=== PATIENT | male | born 1935 | race Caucasian/White ===

== ENCOUNTER 2020-08-10 12:19 | Inpatient (IN) | payer MEDICARE, OTHER ==
[2020-08-10 15:15] LABS: #Eosinphils 0.2 thou/uL (0.0-0.7); #Monocytes 0.6 thou/uL (0.11-0.59); #Neutrophils 5.2 thou/uL (1.40-6.50); %Basophils 0.6 % (0.0-1.0); %Eosinophils 2.6 % (0.0-10.0); %Monocytes 8.9 % (0.0-10.0); %Neutrophils 73.9 % (42.0-75.0); Hemoglobin 14.3 g/dL (14.0-18.0); Mean Corpuscular HGB CONC 33.9 g/dL (32.0-36.0); Mean Corpuscular Hemoglobin 34.6 pg (27.0-31.0); Mean Platelet Volume 8.5 fL (7.4-10.4); Platelet Count 177 thou/uL (130-400); RBC Distribution Width 12.3 % (11.5-14.5); Red Blood Cell (RBC) Count 4.13 mill/uL (4.70-6.10); White Blood Cell (WBC) Count 7.1 thou/uL (4.8-10.8)
--- NOTE | 2020-08-10 15:23 | RAD ---
EXAM: Chest one view: HISTORY: Injury from a fall COMPARISON: 04/16/2020 FINDINGS: Heart size: Within normal limits. Lungs: Clear of acute process. No evidence for confluent lobar pneumonia, significant pleural effusion, acute edema, or pneumothorax , or other significant acute process. IMPRESSION: No significant acute intrathoracic disease.
[2020-08-10 15:36] LABS: ALT (SGPT) 25 U/L (8-55); AST (SGOT) 22 U/L (5-34); Alkaline Phosphatase 95 U/L (40-110); Anion Gap 13 mmol/L (10-20); BUN (Urea Nitrogen) 27 mg/dL (8.4-25.7); Bilirubin, Total 0.6 mg/dL (0.2-1.2); CK (CPK) 96 U/L (30-200); Calc. Creatinine Clearance 0 mL/min (70-130); Calcium 8.8 mg/dL (7.8-10.44); Carbon Dioxide 28 mmol/L (23-31); Chloride 104 mmol/L (98-107); Globulin 2.7 g/dL (2.4-3.5); Glucose 174 mg/dL (83-110); Potassium 4.3 mmol/L (3.5-5.1); Protein, Total 6.7 g/dL (5.8-8.1); Sodium 141 mmol/L (136-145)
[2020-08-10 16:27] LABS: Lipase Less than 4 U/L (8-78)
[2020-08-10 16:48] LABS: Bacteria/HPF None Seen HPF (None Seen); Bilirubin Negative (Negative); Blood, Urine Negative (Negative); Clarity Clear (Clear); Glucose, Urine (Dipstick) Normal (Negative); Ketone, Urine Negative (Negative); Leukocyte Negative Leu/uL (Negative); Nitrite Negative (Negative); Protein, Urine (Dipstick) 30 mg/dL (Neg-Trace); Specific Gravity, Urine 1.031 (1.002-1.036); Squamous Epithelial 0-3 HPF (0-3); WBC/HPF 0-3 HPF (0-3); pH, Urine 6.5 (5.0-9.0)
[2020-08-10 16:58] LABS: RBC/HPF 0-3 HPF (0-3)
--- NOTE | 2020-08-10 16:59 | CT ---
Exam: Head CT without contrast HISTORY: Recent fall. Hit head. COMPARISON: 04/16/2020 FINDINGS: Hemorrhage: No intraparenchymal hemorrhage or extra-axial hematoma. Brain parenchyma: Cortical nickerson-white matter differentiation is preserved. No mass effect or midline shift. Basilar cisterns are patent.Stable chronic small vessel ischemic changes of the white matter. 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 Ventricular system: Ventricles and sulci are patent and symmetric. Calvarium: Intact. Sinuses and mastoid air cells: Adequate aeration. IMPRESSION: No acute intracranial process.
--- NOTE | 2020-08-10 17:41 | PDOC.HHP ---
Hospitalist HPI Generalized weakness History of Present Illness: PCP: Dr. Segovia The patient is an 84-year-old male with a past medical history significant for bradycardia, HTN, HLD, glaucoma and prostate cancer status post prostatectomy that presents to the emergency department for the above complaint. The patient reports feeling generally weak for the past several days. He reports falling today. He says that his legs just "gave out". He denies hitting his head or loss of consciousness. He denies any vomiting. He is not on any blood thinners. He has chronic low back pain, which is unchanged. He denies any saddle anesthesia, urinary incontinence/retention. He has never used IV drugs. He is not a diabetic. He has no recent surgeries to his back. He reports chronic intermittent swelling to his lower extremities. He says that his heart rate normally runs in the 40s to 50s beats per minute. He denies any chest pain, heart palpitations or lightheadedness. He denies any shortness of breath, cough, wheezing. Has no history of COPD/asthma. No history of DVT/PE. His director enterprise data architecture is Dr. Roca in [place]. He does not remember when he had his last echocardiogram. He reports that he is compliant with his medication regimen, however, he does not know any of his medication names. Denies any rece nt changes to his medications. He does not have a pacemaker. He denies any recent fever or illness. He has no other complaints at this time. ED Course: VITAL SIGNS ThuAug 10, 2020 12:22 TEA Ritter Luke BP: 165/72, Pulse: 43, Resp: 18, Temp: 97.7 (Oral), Pain: 0, O2 sat: 98 on (Room Air), Time: 08/10/2020 12:22. VITAL SIGNS ThuAug 10, 2020 15:34 ELIE Martinez Garrett BP: 198/86, MAP: 124, Pulse: 42, Resp: 18, Pain: 0, O2 sat: 98 on (Room Air), Time: 08/10/2020 15:34. EKG sinus bradycardia 41 bpm with first-degree AV block. CT brain negative for any acute process. CXR negative for any acute process. Initial troponin 0.013, BNP 356, no baseline comparison. UA unremarkable TSH 2.59 Hemoglobin 14.3, hematocrit 42.2. Medications: None Allergies/Adverse Reactions: Allergy/AdvReac Type Severity Reaction Status Date / Time iodine Allergy Verified 04/16/20 15:29 metronidazole Allergy Verified 04/16/20 15:29 Sulfa (Sulfonamide Allergy Verified 04/16/20 15:29 Antibiotics) Home Medications: Medication Instructions Recorded Confirmed Type Phenazopyridine HCl [Pyridium] 100 mg PO Q8HR PRN 04/16/20 04/17/20 History Bimatoprost [Lumigan] 1 drop L EYE HS 04/17/20 04/17/20 History Brimonidine Tartrate/Timolol 1 drop L EYE BID 04/17/20 04/17/20 History [Combigan 0.2%-0.5% Eye Drops] Clotrimazole/Betamethasone Cre 1 applic .ROUTE BID 04/17/20 04/17/20 History [Lotrisone Cream] Enalapril Maleate 10 mg PO BID 04/17/20 04/17/20 History Flecainide [Tambocor] 100 mg PO BID 04/17/20 04/17/20 History Fluorometholone [Flarex 0.1% Ophth 1 drop R EYE DAILY 04/17/20 04/17/20 History Soln] Furosemide 20 mg PO DAILY 04/17/20 04/17/20 History Gabapentin 300 mg PO BID 04/17/20 04/17/20 History Potassium Chloride [Klor-Con 10] 10 meq PO DAILY 04/17/20 04/17/20 History Simvastatin 40 mg PO HS 04/17/20 04/17/20 History Past History: PMH: Bradycardia, HTN, HLD, glaucoma, prostate cancer PSX: Prostatectomy approximately 8 years ago, hernia, spinal surgery (cervical spine) Social history: Recently ambulating with a cane. Denies any history of smoking, illicit drug use or alcohol intake. He is retired. He is independent. Family history: Noncontributory for this case. Hospitalist HPI ROS All other systems reviewed; all pertinent +/- noted in HPI/Subj Hospitalist Exam General Appearance: NAD, awake alert. negative: ill appearing Eye: anicteric sclera ENT: normocephalic atraumatic, moist mucosa Neck: supple, no JVD, no carotid bruit Heart: no murmur, no gallops, no rubs, normal peripheral pulses Heart - other findings: Sinus bradycardia Respiratory: CTAB, no wheezes, no rales, no ronchi, normal chest expansion, no tachypnea Gastrointestinal: soft, non-tender, non-distended, normal bowel sounds, no guarding, no rigidity Extremities: no cyanosis, 2+ LE edema Skin: no rashes Neurological: no focal deficits Musculoskeletal: no muscle wasting Psychiatric: normal affect, A&O x 3 Hospitalist Results Result Diagrams: 08/10/20 15:06 08/10/20 15:06 Lab results: Laboratory Last Values WBC 7.1 thou/uL (4.8-10.8) 08/10/20 15:06 RBC 4.13 mill/uL (4.70-6.10) L 08/10/20 15:06 Hgb 14.3 g/dL (14.0-18.0) 08/10/20 15:06 Hct 42.2 % (42.0-52.0) 08/10/20 15:06 MCV 102.0 fL (78.0-98.0) H 08/10/20 15:06 MCH 34.6 pg (27.0-31.0) H 08/10/20 15:06 MCHC 33.9 g/dL (32.0-36.0) 08/10/20 15:06 RDW 12.3 % (11.5-14.5) 08/10/20 15:06 Plt Count 177 thou/uL (130-400) 08/10/20 15:06 MPV 8.5 fL (7.4-10.4) 08/10/20 15:06 Neutrophils % 73.9 % (42.0-75.0) 08/10/20 15:06 Lymphocytes % 14.0 % (21.0-51.0) L 08/10/20 15:06 Monocytes % 8.9 % (0.0-10.0) 08/10/20 15:06 Eosinophils % 2.6 % (0.0-10.0) 08/10/20 15:06 Basophils % 0.6 % (0.0-1.0) 08/10/20 15:06 Neutrophils # 5.2 thou/uL (1.40-6.50) 08/10/20 15:06 Lymphocytes # 1.0 thou/uL (1.20-3.40) L 08/10/20 15:06 Monocytes # 0.6 thou/uL (0.11-0.59) H 08/10/20 15:06 Eosinophils # 0.2 thou/uL (0.0-0.7) 08/10/20 15:06 Basophils # 0.0 thou/uL (0.0-0.2) 08/10/20 15:06 Sodium 141 mmol/L (136-145) 08/10/20 15:06 Potassium 4.3 mmol/L (3.5-5.1) 08/10/20 15:06 Chloride 104 mmol/L (98-107) 08/10/20 15:06 Carbon Dioxide 28 mmol/L (23-31) 08/10/20 15:06 Anion Gap 13 mmol/L (10-20) 08/10/20 15:06 BUN 27 mg/dL (8.4-25.7) H 08/10/20 15:06 Creatinine 1.22 mg/dL (0.7-1.3) 08/10/20 15:06 Estimated GFR (MDRD) 56 08/10/20 15:06 Glucose 174 mg/dL (83-110) H 08/10/20 15:06 Calcium 8.8 mg/dL (7.8-10.44) 08/10/20 15:06 Total Bilirubin 0.6 mg/dL (0.2-1.2) 08/10/20 15:06 AST 22 U/L (5-34) 08/10/20 15:06 ALT 25 U/L (8-55) 08/10/20 15:06 Alkaline Phosphatase 95 U/L (40-110) 08/10/20 15:06 Creatine Kinase 96 U/L (30-200) 08/10/20 15:06 Troponin I 0.013 ng/mL (< 0.028) 08/10/20 15:06 B-Natriuretic Peptide 356.6 pg/mL (0-100) H 08/10/20 15:06 Serum Total Protein 6.7 g/dL (5.8-8.1) 08/10/20 15:06 Albumin 4.0 g/dL (3.4-4.8) 08/10/20 15:06 Globulin 2.7 g/dL (2.4-3.5) 08/10/20 15:06 Albumin/Globulin Ratio 1.5 g/dL (1.2-2.2) 08/10/20 15:06 Lipase Less than 4 U/L (8-78) L 08/10/20 15:06 TSH 3rd Generation 2.5918 uIU/mL (0.35-4.94) 08/10/20 15:06 Urine Color Yellow (Yellow) 08/10/20 16:20 Urine Clarity Clear (Clear) 08/10/20 16:20 Urine pH 6.5 (5.0-9.0) 08/10/20 16:20 Ur Specific [place] 1.031 (1.002-1.036) 08/10/20 16:20 Urine Protein 30 mg/dL (Neg-Trace) A 08/10/20 16:20 Urine Glucose (UA) Normal mg/dL (Negative) 08/10/20 16:20 Urine Ketones Negative mg/dL (Negative) 08/10/20 16:20 Urine Blood Negative (Negative) 08/10/20 16:20 Urine Nitrite Negative (Negative) 08/10/20 16:20 Urine Bilirubin Negative (Negative) 08/10/20 16:20 Urine Urobilinogen 2.0 mg/dL (Less than 2) A 08/10/20 16:20 Ur Leukocyte Esterase Negative Ulices/uL (Negative) 08/10/20 16:20 Urine RBC 0-3 HPF (0-3) 08/10/20 16:20 Urine WBC 0-3 HPF (0-3) 08/10/20 16:20 Ur Squamous Epith Cells 0-3 HPF (0-3) 08/10/20 16:20 Urine Bacteria None Seen HPF (None Seen) 08/10/20 16:20 Hyaline Casts 0-3 LPF (0-3) 08/10/20 16:20 EKG Status: report reviewed by me Additional Comments: 12 lead EKG interpreted by Emergency Department Physician at time of study, Heart rate 41, sinus bradycardia with first-degree degree AV block, nonspecific intraventricular block, QTC 432. CT scan - head Status: report reviewed by me Additional Comments: IMPRESSION: No acute intracranial process. Chest x-ray Status: report reviewed by me Additional Comments: IMPRESSION: No significant acute intrathoracic disease. Hospitalist H&P A/P (1) Sinus bradycardia, persistent Code(s): R00.1 - BRADYCARDIA, UNSPECIFIED Status: Acute (2) Falls Code(s): W19.XXXA - UNSPECIFIED FALL, INITIAL ENCOUNTER Status: Acute Qualifiers: Encounter type: initial encounter Qualified Code(s): W19.XXXA - Unspecified fall, initial encounter (3) History of bradycardia Code(s): Z87.898 - PERSONAL HISTORY OF OTHER SPECIFIED CONDITIONS Status: Chronic (4) HTN (hypertension) Code(s): I10 - ESSENTIAL (PRIMARY) HYPERTENSION Status: Chronic (5) Glaucoma Code(s): H40.9 - UNSPECIFIED GLAUCOMA Status: Chronic (6) Prostate cancer Code(s): C61 - MALIGNANT NEOPLASM OF PROSTATE Status: Chronic Plan: a patient with a history of bradycardia, HTN and HLD presents for generalized weakness, frequent falls and persistent bradycardia. EKG sinus bradycardia 41 bpm with first-degree AV block. Initial troponin negative. BNP mildly elevated 356. #Sinus bradycardia, persistent ER MD consulted cardiology, Dr. Dillard, who agreed to see patient. N.p.o. after midnight. Echocardiogram. Unable to update home medication list. Did show flecainide. While review med list once confirmed by spouse. #Falls Unclear etiology at this time. CT negative for any acute process. Could be related to problem #1. Will check Carotid US. Fall precautions. #History of bradycardia Heart rate 40s to 50s per patient. Sees Dr. Omi Roca in [place]. Order echocardiogram. Consult cardiology. #HTN Presented hypertensive. Gave hydralazine x1 dose. A: Bilateral lower extremity swelling 2+ edema BNP 356, no baseline for comparison. CXR no evidence of pulmonary congestion. Takes Lasix at home, unknown dose. We will give Lasix 40 IVP x1 dose now. #Glaucoma Restart home medications when reconciled by nursing. #Prostate cancer Status post prostatectomy approximately 8 years ago. NO DVT prophylaxis. Pepcid for GI prophylaxis. CODE STATUS full code. Discussed the case with Dr. Cuenca, attending physician who agrees with plan of care.
[2020-08-10] MEDS ORDERED: hydrALAZINE 20 MG/ML VIAL ONE (18:15)
[2020-08-10 19:02] LABS: Troponin I Less than 0.010 ng/mL (< 0.028)
[2020-08-10] MEDS ORDERED: Acetaminophen 325 MG TAB PO PRN (19:04)
[2020-08-10] MEDS ORDERED: Ondansetron PF 4 MG/2 ML Vial IVP PRN (19:04)
[2020-08-10] MEDS ORDERED: Ondansetron ODT 4 MG TAB PO PRN (19:04)
[2020-08-10 21:49] LABS: Troponin I 0.016 ng/mL (< 0.028)
[2020-08-11 04:52] LABS: #Basophils 0.1 thou/uL (0.0-0.2); #Eosinphils 0.3 thou/uL (0.0-0.7); #Lymphocytes 1.1 thou/uL (1.20-3.40); #Monocytes 0.8 thou/uL (0.11-0.59); #Neutrophils 5.4 thou/uL (1.40-6.50); %Basophils 1.2 % (0.0-1.0); %Eosinophils 3.3 % (0.0-10.0); %Lymphocytes 14.5 % (21.0-51.0); %Monocytes 9.9 % (0.0-10.0); %Neutrophils 71.1 % (42.0-75.0); Hemoglobin 13.6 g/dL (14.0-18.0); Mean Corpuscular HGB CONC 33.3 g/dL (32.0-36.0); Mean Corpuscular Hemoglobin 33.2 pg (27.0-31.0); Mean Corpuscular Volume 99.7 fL (78.0-98.0); Mean Platelet Volume 8.5 fL (7.4-10.4); Platelet Count 185 thou/uL (130-400); RBC Distribution Width 12.3 % (11.5-14.5); White Blood Cell (WBC) Count 7.6 thou/uL (4.8-10.8)
[2020-08-11 05:14] LABS: Anion Gap 9 mmol/L (10-20); BUN (Urea Nitrogen) 19 mg/dL (8.4-25.7); Calc. Creatinine Clearance 74 mL/min (70-130); Calcium 8.8 mg/dL (7.8-10.44); Carbon Dioxide 28 mmol/L (23-31); Cardiac Risk 2.4 (Less than 4.5); Chloride 104 mmol/L (98-107); Cholesterol 117 mg/dl (< 200 Desired); Glucose 137 mg/dL (83-110); HDL Cholesterol 49 mg/dL (>60 Neg Risk); LDL Cholesterol, Calculated 55 mg/dL; Potassium 3.7 mmol/L (3.5-5.1); Sodium 137 mmol/L (136-145); Triglycerides 65 mg/dL (Less than 150)
[2020-08-11 05:28] LABS: SARS-CoV-2 PCR by NAA Not Detected (NotDetected)
--- NOTE | 2020-08-11 08:28 | ULT ---
EXAM: Carotid Doppler PROVIDED CLINICAL HISTORY: Falls COMPARISON: None FINDINGS: Grayscale and color Doppler sonography with spectral analysis was performed of the extracranial carot id system bilaterally. Atherosclerotic plaque is seen in each carotid bulb. There is no evidence for a hemodynamically significant internal carotid artery stenosis by peak systolic velocity or ratio criteria. Antegrade flow is seen in the vertebral arteries. IMPRESSION: No sonographic evidence for a hemodynamically significant internal carotid artery stenosis.
[2020-08-11] MEDS: Potassium Chloride 10 MEQ TAB PO SCH (08:46)
[2020-08-11] MEDS: Lisinopril 20 MG TAB PO SCH ×2 (08:46→23:05)
[2020-08-11] MEDS: Aspirin Chewable 81 MG TAB PO SCH (08:47)
[2020-08-11] MEDS: Famotidine 20 MG TAB PO SCH (08:47)
[2020-08-11] MEDS ORDERED: Enoxaparin Sodium 40 MG/0.4 ML SYRINGE SC SCH (09:00)
[2020-08-11] MEDS ORDERED: Furosemide 40 MG/4 ML VIAL SLOW IVP SCH (09:00)
[2020-08-11] MEDS: Fluorometholone 0.1% Ophth Soln 5 ml Bottle R EYE SCH ×2 (10:34→23:09)
[2020-08-11] MEDS: hydrALAZINE 20 MG/ML VIAL SLOW IVP PRN ×2 (10:35→15:11)
[2020-08-11] MEDS: Furosemide 20 MG TAB PO SCH (10:35)
[2020-08-11 12:14] VITALS: BMI 25.4
[2020-08-11] MEDS: Brimonidine Tartrate 0.2% Ophth Soln 5 ml Bottle EA EYE SCH ×2 (13:37→23:12)
[2020-08-11] MEDS: Timolol 0.5% Ophth Soln 5 ml Bottle EA EYE SCH ×2 (13:37→23:13)
--- NOTE | 2020-08-11 16:23 | PDOC.BPN ---
- Brief Progress Note progress note dictated
[2020-08-11] MEDS ORDERED: hydrALAZINE 25 MG TAB PO SCH (16:30)
--- NOTE | 2020-08-11 16:44 | PRG ---
DATE OF SERVICE: 08/11/2020 SUBJECTIVE: The patient is sitting up in bed, denies chest pain, shortness of breath, or dizziness. The patient stated that recently he has been feeling lightheaded and otherwise no new complaints. REVIEW OF SYSTEMS: Review of 14 systems is negative except what is mentioned in history of present illness. PHYSICAL EXAMINATION: GENERAL: The patient is awake, does not appear to be in acute distress. VITAL SIGNS: Blood pressure is 201/90, pulse is 47, respiratory rate is 18, oxygen saturation 97% on room air, and temperature 97.7. HEENT: Normocephalic, atraumatic. NECK: Supple. CHEST: Fair bilateral air entry. HEART: S1 and S2. Regular, bradycardic. ABDOMEN: Soft, nontender. Bowel sounds present. NEUROLOGIC: Awake, alert, oriented. Moving extremities. PSYCH: Normal mood. LABORATORY DATA: Sodium 137, potassium 3.7, BUN is 19, creatinine 0.8, glucose is 137. WBC count is 7.6, hemoglobin 13.6, and platelets 12.3. Carotid Doppler unremarkable. 2D echo pending. CT of the brain, no acute finding. Chest x-ray, no acute finding. ASSESSMENT: 1. Sinus bradycardia, persistent. 2. Recurrent falls. 3. Hypertension. 4. Glaucoma. 5. Prostate cancer. PLAN: 1. Continue with telemetry monitoring. 2. We will follow 2D echo results. 3. Cardiology is consulted for evaluation and further recommendations. 4. The patient's blood pressure is still not well controlled, we will add p.o. hydralazine. 5. GI and DVT prophylaxis as appropriate. Job ID: [id number]
--- NOTE | 2020-08-11 18:31 | CON ---
DATE OF CONSULTATION: 08/11/2020 REASON FOR CONSULTATION: Bradycardia. PRIMARY RN FIRST ASSISTANT: Dr. Omi Hernandez. HISTORY OF PRESENT ILLNESS: Mr. Rosas is a very pleasant 84-year-old white gentleman, who comes to the hospital for weakness. He came in as he has been noticing weakness in the last 2 or 3 days that just kept getting worse and worse. He denies passing out. No syncope or presyncope. He just felt that he was stunned up and he was so weak, his legs would give out. He came in and his heart rate was at 42, so Cardiology is being consulted to evaluate for possible symptomatic bradycardia. At this time, Mr. Rosas tells me that his heart rate is always in the 40s. He has a history of atrial fibrillation and has been on flecainide for some time now. He used to be on Multaq, but this became too expensive, so he was switched to flecainide. He is taking 150 mg tab twice a day. He otherwise has not been found to have any other reason for his weakness. On my evaluation, he denies any chest pain, tightness, pressure. No shortness of breath. He remains somewhat tired and just feeling like he does not want to do much. PAST MEDICAL HISTORY: 1. Paroxysmal atrial fibrillation. 2. Hypertension. 3. Hyperlipidemia. 4. Prostate cancer. 5. Glaucoma. PAST SURGICAL HISTORY: 1. Prostatectomy. 2. Spinal surgery and cervical spine. 3. Hernia surgery. SOCIAL HISTORY: No alcohol, tobacco, or drugs. FAMILY HISTORY: Noncontributory. MEDICATIONS: 1. Pyridium p.r.n. 2. Lumigan eye drops. 3. Combigan eye drops. 4. Lotrisone cream. 5. Enalapril 10 mg b.i.d. 6. Flecainide 150 mg b.i.d. 7. Aspirin 81 a day. 8. Simvastatin 40 mg at bedtime. 9. Lasix 20 mg a day. 10. Potassium chloride 10 mEq a day. 11. Gabapentin 300 mg at bedtime. ALLERGIES: 1. ADHESIVE TAPE. 2. IODINE. 3. METRONIDAZOLE. 4. SULFA DRUGS. THEY ALL GAVE HIM A RASH. REVIEW OF SYSTEMS: A 12-point review of systems was done and was found to be negative other than stated in the history of present illness. PHYSICAL EXAMINATION: VITAL SIGNS: Temperature 98.3, pulse anywhere from 41 on arrival up to 56, respiratory rate 18, sat 97% on room air, blood pressure 126/59. GENERAL: Awake, alert, and oriented x3, in no distress. HEENT: Normocephalic and atraumatic. NECK: Supple. LUNGS: Clear. CARDIOVASCULAR: S1 and S2. No S3 or S4. Bradycardic in the mid 40s. ABDOMEN: Soft. Positive bowel sounds. EXTREMITIES: No edema. SKIN: Warm and dry. LABORATORY DATA: Laboratory work was reviewed. White count of 7, hemoglobin of 14, hematocrit 42, and platelet count of 177. Chemistries were unremarkable. Normal BUN and creatinine. GFR of 83. Troponin was negative x3. BNP was mildly elevated at 356. Lipase was undetectable. LDL 55, triglycerides of 65, HDL of 49. TSH was normal. UA was unremarkable. COVID PCR was negative. Echocardiogram was reviewed, showed an EF of 55% to 60% with diastolic dysfunction and RVSP elevated at 50 mmHg. Carotid Doppler showed no evidence of internal carotid artery stenosis. ASSESSMENT/PLAN: 1. Weakness. 2. Bradycardia, could be symptomatic. 3. 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 4. Acute on chronic diastolic heart failure. PLAN: 1. Would give just one more day of IV Lasix. He already got Lasix today IV. We will give it tomorrow IV as well just one time. 2. He will stop the flecainide at this time. 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 We will plan on consulting Electrophysiology on Thursday as he will probably need a pacemaker. We will consult Dr. Ricks. Thank you for letting us to participate in the care of your patient. We will follow. Job ID: [id number]
[2020-08-11] MEDS: Simvastatin 40 MG TAB PO SCH (23:04)
[2020-08-11] MEDS: hydrALAZINE 25 MG TAB PO SCH (23:05)
[2020-08-11] MEDS: Latanoprost 0.005% Ophth Soln 2.5 ml Bottle EA EYE SCH (23:06)
[2020-08-11] MEDS: Gabapentin 300 MG CAP PO SCH (23:07)
[2020-08-12] MEDS: Famotidine 20 MG TAB PO SCH (10:05)
[2020-08-12] MEDS: Furosemide 20 MG TAB PO SCH (10:05)
[2020-08-12] MEDS: Potassium Chloride 10 MEQ TAB PO SCH (10:05)
[2020-08-12] MEDS: Aspirin Chewable 81 MG TAB PO SCH (10:06)
[2020-08-12] MEDS: Lisinopril 20 MG TAB PO SCH ×2 (10:06→20:51)
[2020-08-12] MEDS: hydrALAZINE 25 MG TAB PO SCH ×2 (10:06→20:51)
[2020-08-12] MEDS: Brimonidine Tartrate 0.2% Ophth Soln 5 ml Bottle EA EYE SCH ×2 (10:15→20:47)
[2020-08-12] MEDS: Timolol 0.5% Ophth Soln 5 ml Bottle EA EYE SCH ×2 (10:22→20:51)
[2020-08-12] MEDS: Fluorometholone 0.1% Ophth Soln 5 ml Bottle R EYE SCH ×2 (10:22→20:50)
--- NOTE | 2020-08-12 14:33 | PDOC.BPN ---
- Brief Progress Note [id number]
[2020-08-12] MEDS ORDERED: Enoxaparin Sodium 40 MG/0.4 ML SYRINGE SC SCH (15:00)
[2020-08-12] MEDS: hydrALAZINE 20 MG/ML VIAL SLOW IVP PRN (16:35)
--- NOTE | 2020-08-12 16:52 | PDOC.CPN ---
- Subjective Date: 08/12/20 Time: 16:51 Interval history: He is feeling better today. His HR is better in the mid 50's. - Review of Systems General: denies: fever/chills, weight/appetite/sleep changes, night sweats, fatigue Respiratory: denies: cough, congestion, shortness of breath, exercise intolerance Cardiovascular: denies: chest pain, palpitation, edema, paroxysmal nocturnal dyspnea, orthopnea Gastrointestinal: denies: nausea, vomiting, diarrhea, constipation, abd pain, GI bleeding Musculoskeletal: denies: pain, tenderness, stiffness, swelling, arthritis/arthralgias Neurological: denies: numbness, syncope, seizure, weakness - Objective Allergies/Adverse Reactions: Allergies Allergy/AdvReac Type Severity Reaction Status Date / Time adhesive tape Allergy Rash Verified 08/10/20 22:27 iodine Allergy Rash Verified 08/10/20 22:27 metronidazole Allergy Rash Verified 08/10/20 22:27 Sulfa (Sulfonamide Allergy Rash Verified 08/10/20 22:27 Antibiotics) Visit Medications: Current Medications Acetaminophen (Acetaminophen 325 Mg Tab) 650 mg PO Q4H PRN PRN Reason: Headache/Fever/Mild Pain (1-3) Aspirin (Aspirin Chewable 81 Mg Tab) 81 mg PO DAILY [facility] Last Admin: 08/12/20 10:06 Dose: 81 mg Documented by: Brimonidine Tartrate (Brimonidine Tartrate 0.2% Ophth Soln 5 Ml Bottle) 1 drop EA EYE BID [facility] Last Admin: 08/12/20 10:15 Dose: 1 drop Documented by: Enoxaparin Sodium (Enoxaparin Sodium 40 Mg/0.4 Ml Syringe) 40 mg SC DAILY [facility] Enoxaparin Sodium (Enoxaparin Sodium 40 Mg/0.4 Ml Syringe) 40 mg SC NOW [facility] Stop: 08/12/20 17:00 Last Admin: 08/12/20 15:50 Dose: 40 mg Documented by: Famotidine (Famotidine 20 Mg Tab) 20 mg PO DAILY [facility] Last Admin: 08/12/20 10:05 Dose: 20 mg Documented by: Fluorometholone (Fluorometholone 0.1% Ophth Soln 5 Ml Bottle) 1 drop R EYE BID [facility] Last Admin: 08/12/20 10:22 Dose: Not Given Documented by: Furosemide (Furosemide 20 Mg Tab) 20 mg PO DAILY [facility] Last Admin: 08/12/20 10:05 Dose: 20 mg Documented by: Gabapentin (Gabapentin 300 Mg Cap) 300 mg PO [facility] Last Admin: 08/11/20 23:07 Dose: 300 mg Documented by: Hydralazine HCl (Hydralazine 20 Mg/Ml Vial) 10 mg SLOW IVP Q4H PRN PRN Reason: SBP > 180 or DBP > 105 Last Admin: 08/12/20 16:35 Dose: 10 mg Documented by: Hydralazine HCl (Hydralazine 25 Mg Tab) 25 mg PO BID [facility] Last Admin: 08/12/20 10:06 Dose: 25 mg Documented by: Latanoprost (Latanoprost 0.005% Ophth Soln 2.5 Ml Bottle) 1 drop EA EYE [facility] Last Admin: 08/11/20 23:06 Dose: 1 drop Documented by: Lisinopril (Lisinopril 20 Mg Tab) 20 mg PO BID [facility] Last Admin: 08/12/20 10:06 Dose: 20 mg Documented by: Ondansetron HCl (Ondansetron Odt 4 Mg Tab) 4 mg PO Q6H PRN PRN Reason: Nausea/Vomiting Ondansetron HCl (Ondansetron Pf 4 Mg/2 Ml Vial) 4 mg IVP Q6H PRN PRN Reason: Nausea/Vomiting Potassium Chloride (Potassium Chloride 10 Meq Tab) 10 meq PO DAILY [facility] Last Admin: 08/12/20 10:05 Dose: 10 meq Documented by: Simvastatin (Simvastatin 40 Mg Tab) 40 mg PO [facility] Last Admin: 08/11/20 23:04 Dose: 40 mg Documented by: Sodium Chloride (Flush - Normal Saline 10 Ml Syringe) 10 ml IVF PRN PRN PRN Reason: Saline Flush Last Admin: 08/11/20 23:06 Dose: 10 ml Documented by: Timolol Maleate (Timolol 0.5% Ophth Soln 5 Ml Bottle) 1 drop EA EYE BID [facility] Last Admin: 08/12/20 10:22 Dose: Not Given Documented by: Vital Signs & Weight: Vital Signs Temp Pulse Resp BP BP BP BP 08/12/20 15:53 98.7 F 59 L 14 196/97 H 08/12/20 11:15 97.8 F 62 19 162/72 H 08/12/20 09:00 98.4 F 59 L 12 196/102 H 207/102 H 208/89 H Pulse Ox 08/12/20 15:53 95 08/12/20 11:15 95 08/12/20 09:00 96 Weight 176 lb - Physical Exam General: alert & oriented x3 HEENT: mucus membranes moist Neck: supple neck Cardiac: regular rate and rhythm Lungs: normal breath sounds Neuro: grossly intact Abdomen: active bowel sounds Extremities: no edema Skin: clear Musculoskeletal: no pain - Labs Result Diagrams: 08/11/20 04:36 08/11/20 04:36 Troponin/CKMB Troponin I 0.016 ng/mL (< 0.028) 08/10/20 21:18 - Telemetry Sinus rhythms and dysrhythmias: sinus bradycardia (< 50 bpm) - Assessment/Plan Assessment/Plan: 1. Fatigue 2. Sinus marianela 3. Paroxysmal Afib PLAN: - EP consult tomorrow with Dr Ricks to evaluate for possible Tachy marianela and need for PPM - Continue to hold flecainide.
--- NOTE | 2020-08-12 18:37 | PDOC.EP ---
- Subjective Date: 08/12/20 Time: 18:34 - Objective Allergies/Adverse Reactions: Allergies Allergy/AdvReac Type Severity Reaction Status Date / Time adhesive tape Allergy Rash Verified 08/10/20 22:27 iodine Allergy Rash Verified 08/10/20 22:27 metronidazole Allergy Rash Verified 08/10/20 22:27 Sulfa (Sulfonamide Allergy Rash Verified 08/10/20 22:27 Antibiotics) Current Medications Acetaminophen (Acetaminophen 325 Mg Tab) 650 mg PO Q4H PRN PRN Reason: Headache/Fever/Mild Pain (1-3) Aspirin (Aspirin Chewable 81 Mg Tab) 81 mg PO DAILY [facility] Last Admin: 08/12/20 10:06 Dose: 81 mg Documented by: Brimonidine Tartrate (Brimonidine Tartrate 0.2% Ophth Soln 5 Ml Bottle) 1 drop EA EYE BID [facility] Last Admin: 08/12/20 10:15 Dose: 1 drop Documented by: Enoxaparin Sodium (Enoxaparin Sodium 40 Mg/0.4 Ml Syringe) 40 mg SC DAILY [facility] Famotidine (Famotidine 20 Mg Tab) 20 mg PO DAILY [facility] Last Admin: 08/12/20 10:05 Dose: 20 mg Documented by: Fluorometholone (Fluorometholone 0.1% Ophth Soln 5 Ml Bottle) 1 drop R EYE BID [facility] Last Admin: 08/12/20 10:22 Dose: Not Given Documented by: Furosemide (Furosemide 20 Mg Tab) 20 mg PO DAILY [facility] Last Admin: 08/12/20 10:05 Dose: 20 mg Documented by: Gabapentin (Gabapentin 300 Mg Cap) 300 mg PO [facility] Last Admin: 08/11/20 23:07 Dose: 300 mg Documented by: Hydralazine HCl (Hydralazine 20 Mg/Ml Vial) 10 mg SLOW IVP Q4H PRN PRN Reason: SBP > 180 or DBP > 105 Last Admin: 08/12/20 16:35 Dose: 10 mg Documented by: Hydralazine HCl (Hydralazine 25 Mg Tab) 25 mg PO BID [facility] Last Admin: 08/12/20 10:06 Dose: 25 mg Documented by: Latanoprost (Latanoprost 0.005% Ophth Soln 2.5 Ml Bottle) 1 drop EA EYE [facility] Last Admin: 08/11/20 23:06 Dose: 1 drop Documented by: Lisinopril (Lisinopril 20 Mg Tab) 20 mg PO BID [facility] Last Admin: 08/12/20 10:06 Dose: 20 mg Documented by: Ondansetron HCl (Ondansetron Odt 4 Mg Tab) 4 mg PO Q6H PRN PRN Reason: Nausea/Vomiting Ondansetron HCl (Ondansetron Pf 4 Mg/2 Ml Vial) 4 mg IVP Q6H PRN PRN Reason: Nausea/Vomiting Potassium Chloride (Potassium Chloride 10 Meq Tab) 10 meq PO DAILY [facility] Last Admin: 08/12/20 10:05 Dose: 10 meq Documented by: Simvastatin (Simvastatin 40 Mg Tab) 40 mg PO HS [facility] Last Admin: 08/11/20 23:04 Dose: 40 mg Documented by: Sodium Chloride (Flush - Normal Saline 10 Ml Syringe) 10 ml IVF PRN PRN PRN Reason: Saline Flush Last Admin: 08/11/20 23:06 Dose: 10 ml Documented by: Timolol Maleate (Timolol 0.5% Ophth Soln 5 Ml Bottle) 1 drop EA EYE BID [facility] Last Admin: 08/12/20 10:22 Dose: Not Given Documented by: Vital Signs & Weight: Vital Signs Temp Pulse Resp BP BP BP BP 08/12/20 15:53 98.7 F 59 L 14 196/97 H 08/12/20 11:15 97.8 F 62 19 162/72 H 08/12/20 09:00 98.4 F 59 L 12 196/102 H 207/102 H 208/89 H Pulse Ox 08/12/20 15:53 95 08/12/20 11:15 95 08/12/20 09:00 96 Weight 176 lb I/O: I/O 08/11/20 08/12/20 08/13/20 06:59 06:59 06:59 Intake Total 240 720 Output Total 775 1900 Balance -535 -1180 - Labs Result Diagrams: 08/11/20 04:36 08/11/20 04:36 - Assessment/Plan Assessment/Plan: Paroxysmal atrial fibrillation Sick sinus syndrome with symptomatic bradycardia. Recommend dual chamber pacemaker. He requests Dr. Omi Roca perform as outpatient. Okay from EP standpoint to discharge tomorrow if no worsening bradycardia overnight. Plan outpatient pacemaker this week. I will discuss with Dr. Roca Full consult to follow
[2020-08-12] MEDS: Latanoprost 0.005% Ophth Soln 2.5 ml Bottle EA EYE SCH (20:51)
[2020-08-12] MEDS: Gabapentin 300 MG CAP PO SCH (20:51)
[2020-08-12] MEDS: Simvastatin 40 MG TAB PO SCH (22:13)
--- NOTE | 2020-08-12 23:14 | CON ---
DATE OF CONSULTATION: 08/12/2020 PCP: Jeff Segovia MD. REFERRING FIGURE SKATER: Christian Dillard MD. PRIMARY FIGURE SKATER: Omi Roca MD. REASON FOR CONSULTATION: Sick sinus syndrome and symptomatic bradycardia. HISTORY OF PRESENT ILLNESS: Mr. Rosas is a pleasant 84-year-old white male, who was admitted August 10 with weakness and difficulty walking. He feels he has a general feeling of weakness. He has had no syncope or presyncope. Heart rate was 41 on admission. He was on flecainide 100 mg b.i.d. He is not on calcium channel laurence or beta laurence. He was changed from Multaq to flecainide due to cost. Since admission, he has remained bradycardic. He has moderate daily fatigue without exacerbating or alleviating factors. He has no chest discomfort or dyspnea. PAST MEDICAL HISTORY: 1. Paroxysmal atrial fibrillation. 2. Hypertension. 3. Dyslipidemia. 4. Prostate cancer. 5. Glaucoma. PAST SURGICAL HISTORY: 1. Prostatectomy. 2. Spinal surgery. 3. Hernia surgery. ALLERGIES: ADHESIVE TAPE, IODINE, METRONIDAZOLE, SULFA, ALL GAVE HIM A RASH. OUTPATIENT MEDICATIONS: 1. Enalapril 10 mg b.i.d. 2. Flecainide 150 mg b.i.d. 3. Aspirin 81 mg daily. 4. Simvastatin 40 mg at bedtime. 5. Lasix 20 mg daily. 6. Potassium chloride 10 mEq daily. 7. Gabapentin 300 mg at bedtime. FAMILY HISTORY: Noncontributory. SOCIAL HISTORY: . Lives in [place]. No alcohol or tobacco. REVIEW OF SYSTEMS: 12-point review of systems negative. PHYSICAL EXAMINATION: GENERAL: Alert and oriented x4. No apparent distress. Afebrile. VITAL SIGNS: Pulse 41, respiratory rate 12, oxygen saturation 97% on room air, blood pressure 126/59. LUNGS: Clear to auscultation bilaterally. EXTREMITIES: No cyanosis, clubbing, or edema. SKIN: Warm and dry with no lesions. LABORATORY DATA: WBC 7, hemoglobin 14, platelets 177. Normal BUN and creatinine. Troponin normal. BNP mildly elevated. COVID-19 negative. Echocardiogram, EF 55% to 60% with diastolic dysfunction, elevated RVSP of 50, moderately dilated left atrium, mildly dilated right atrium, aortic sclerosis. IMPRESSION: 1. Sick sinus syndrome with symptomatic bradycardia, despite not being on medication and withholding flecainide. He has symptomatic bradycardia at 41 beats per minute while awake. There were no reversible causes. 2. Paroxysmal atrial fibrillation. 3. Tachycardia and bradycardia syndrome. RECOMMENDATIONS: I recommend dual-chamber pacemaker implantation. He strongly wishes to have this procedure done as an outpatient by Dr. Omi Roca. I have discussed the case with Dr. Roca, who will contact him tomorrow. We will plan for pacemaker later this week. The patient understands the risk of leaving the hospital without pacemaker implantation and accepts these. Job ID: [id number]
--- NOTE | 2020-08-13 06:33 | PRG ---
DATE OF SERVICE: 08/12/2020 CURRENT MEDICATIONS: The patient is on, 1. Zofran. 2. Brimonidine eyedrops. 3. Tylenol p.r.n. 4. Gabapentin. 5. Lisinopril. 6. Timolol eyedrops. 7. Fluorometholone eyedrops. 8. Hydralazine p.r.n. 9. Hydralazine scheduled. 10. Pepcid. 11. Simvastatin. 12. Lasix 20 mg p.o. daily. 13. Aspirin. 14. Latanoprost eye drops. 15. Potassium. SUBJECTIVE: The patient is awake, is feeling okay, no new complaints. OBJECTIVE DATA: VITAL SIGNS: Blood pressure is 155/78, temperature 98.6, heart rate is 55, respiratory rate is 16, oxygen saturation 96% on room air. HEAD AND NECK: Normocephalic, atraumatic. Neck is supple. CHEST: Fair bilateral air entry. HEART: S1 and S2, regular. ABDOMEN: Soft, nontender. Bowel sounds present. NEURO: Awake, alert. No focal deficit. PSYCH: Normal mood. EXTREMITIES: No clubbing or cyanosis. ASSESSMENT AND PLAN: 1. Bradycardia, symptomatic? 2. Recurrent falls. 3. Hypertension. 4. Glaucoma. 5. Prostate cancer. PLAN: 1. Continue with telemetry monitoring. 2. Appreciate Cardiology input. May need electrophysiology consult as per Cardiology, ?? the patient may need a pacemaker. 3. Continue with current medications. 4. DVT prophylaxis, Lovenox. Job ID: [id number]
--- NOTE | 2020-08-13 08:48 | PDOC.HOSPP ---
- Subjective Encounter Date: 08/13/20 Encounter Time: 11:30 Subjective: Patient denies any weakness, shortness of breath, or trouble with ambulation. No chest pain. He is eager to get home and then to follow-up with Dr. Roca for his pacemaker. - Objective Vital Signs & Weight: Vital Signs (12 hours) Temp Pulse Resp BP Pulse Ox 08/13/20 04:00 98.3 F 65 20 164/72 H 90 L 08/13/20 00:00 54 L 102/49 L Weight Weight 179 lb 4 oz I&O: 08/12/20 08/13/20 08/14/20 06:59 06:59 06:59 Intake Total 720 1200 Output Total 1900 1175 Balance -1180 25 Result Diagrams: 08/11/20 04:36 08/11/20 04:36 Hospitalist ROS - Review of Systems Constitutional: denies: fever, chills, weakness Respiratory: denies: cough, shortness of breath Cardiovascular: denies: chest pain, palpitations Gastrointestinal: denies: nausea, vomiting, abdominal pain - Medication Medications: Active Medications Generic Name Dose Route Start Last Admin Trade Name Freq PRN Reason Stop Dose Admin Aspirin 81 mg 08/11/20 09:00 08/12/20 10:06 Aspirin Chewable 81 Mg Tab PO 81 mg DAILY [facility] Administration Brimonidine Tartrate 1 drop 08/11/20 09:00 08/12/20 20:47 Brimonidine Tartrate 0.2% Ophth Soln 5 Ml Bottle EA EYE 1 drop BID [facility] Administration Famotidine 20 mg 08/11/20 09:00 08/12/20 10:05 Famotidine 20 Mg Tab PO 20 mg DAILY [facility] Administration Fluorometholone 1 drop 08/11/20 09:00 08/12/20 20:50 Fluorometholone 0.1% Ophth Soln 5 Ml Bottle R EYE 1 drp BID [facility] Administration Furosemide 20 mg 08/11/20 09:00 08/12/20 10:05 Furosemide 20 Mg Tab PO 20 mg DAILY [facility] Administration Gabapentin 300 mg 08/11/20 21:00 08/12/20 20:51 Gabapentin 300 Mg Cap PO 300 mg HS [facility] Administration Hydralazine HCl 10 mg 08/10/20 21:09 08/12/20 16:35 Hydralazine 20 Mg/Ml Vial SLOW IVP 10 mg Q4H PRN Administration SBP > 180 or DBP > 105 Hydralazine HCl 25 mg 08/11/20 21:00 08/12/20 20:51 Hydralazine 25 Mg Tab PO 25 mg BID [facility] Administration Latanoprost 1 drop 08/11/20 21:00 08/12/20 20:51 Latanoprost 0.005% Ophth Soln 2.5 Ml Bottle EA EYE Not Given HS [facility] Lisinopril 20 mg 08/11/20 09:00 08/12/20 20:51 Lisinopril 20 Mg Tab PO 20 mg BID [facility] Administration Potassium Chloride 10 meq 08/11/20 09:00 08/12/20 10:05 Potassium Chloride 10 Meq Tab PO 10 meq DAILY [facility] Administration Simvastatin 40 mg 08/11/20 21:00 08/12/20 22:13 Simvastatin 40 Mg Tab PO Not Given HS [facility] Sodium Chloride 10 ml 08/10/20 18:55 08/11/20 23:06 Flush - Normal Saline 10 Ml Syringe IVF 10 ml PRN PRN Administration Saline Flush Timolol Maleate 1 drop 08/11/20 09:00 08/12/20 20:51 Timolol 0.5% Ophth Soln 5 Ml Bottle EA EYE Not Given BID [facility] Hospitalist Exam Vitals: Vital Signs (12 hours) Temp Pulse Resp BP Pulse Ox 08/13/20 04:00 98.3 F 65 20 164/72 H 90 L 08/13/20 00:00 54 L 102/49 L Weight Weight 179 lb 4 oz General Appearance: NAD, awake alert ENT: moist mucosa Heart: no murmur, no gallops, no rubs, irregular Respiratory: CTAB, no wheezes, no rales, no ronchi Gastrointestinal: soft, non-tender, non-distended, normal bowel sounds Extremities: no edema Psychiatric: normal affect, normal behavior, A&O x 3 Hosp A/P - Plan This is an 84-year-old man with a history of bradycardia, HTN and HLD presents for generalized weakness, frequent falls and persistent bradycardia. EKG sinus bradycardia 41 bpm with first-degree AV block. Initial troponin negative. BNP mildly elevated 356. #Sinus bradycardia, persistent Dr. Reddy and Dr. Ricks consulted Echocardiogram EF 55-60%, 2/3 diastolic dysfunction Holding flecanide. Patient wants to get pacemaker done outpatient with Dr. Roca. Ok to d/c today as HR not too low per electrophysiology. #Falls Unclear etiology at this time. CT negative for any acute process. Could be related to problem #1. Carotid U/S negative Fall precautions. #History of bradycardia Heart rate 40s to 50s per patient. Now in 50s to 60s Sees Dr. Omi Roca in [place]. #HTN decently controlled now #Glaucoma home meds. #Prostate cancer Status post prostatectomy approximately 8 years ago. NO DVT prophylaxis due to falls. Pepcid for GI prophylaxis. CODE STATUS full code. Disposition: Home today and f/u this week with Dr. Roca.
[2020-08-13] MEDS ORDERED: Enoxaparin Sodium 40 MG/0.4 ML SYRINGE SC SCH (09:00)
[2020-08-13 09:29] VITALS: BP 179/86; TEMP 98.1
[2020-08-13] MEDS: Furosemide 20 MG TAB PO SCH (09:29)
[2020-08-13] MEDS: Aspirin Chewable 81 MG TAB PO SCH (09:29)
[2020-08-13] MEDS: Lisinopril 20 MG TAB PO SCH (09:29)
[2020-08-13] MEDS: hydrALAZINE 25 MG TAB PO SCH (09:29)
[2020-08-13] MEDS: Famotidine 20 MG TAB PO SCH (09:29)
[2020-08-13] MEDS: Potassium Chloride 10 MEQ TAB PO SCH (09:29)
[2020-08-13] MEDS: Brimonidine Tartrate 0.2% Ophth Soln 5 ml Bottle EA EYE SCH (09:30)
[2020-08-13] MEDS: Fluorometholone 0.1% Ophth Soln 5 ml Bottle R EYE SCH (09:30)
[2020-08-13] MEDS: Timolol 0.5% Ophth Soln 5 ml Bottle EA EYE SCH (09:34)
--- NOTE | 2020-08-13 15:07 | PDOC.CPN ---
- Subjective Date: 08/13/20 Time: 15:05 Interval history: Feeling much better. No more tiredness. HR consistently in the 60's now. - Review of Systems General: denies: fever/chills, weight/appetite/sleep changes, night sweats, fatigue Respiratory: denies: cough, congestion, shortness of breath, exercise intolerance Cardiovascular: denies: chest pain, palpitation, edema, paroxysmal nocturnal dyspnea, orthopnea Gastrointestinal: denies: nausea, vomiting, diarrhea, constipation, abd pain, GI bleeding Musculoskeletal: denies: pain, tenderness, stiffness, swelling, arthritis/arthralgias Neurological: denies: numbness, syncope, seizure, weakness - Objective Allergies/Adverse Reactions: Allergies Allergy/AdvReac Type Severity Reaction Status Date / Time adhesive tape Allergy Rash Verified 08/10/20 22:27 iodine Allergy Rash Verified 08/10/20 22:27 metronidazole Allergy Rash Verified 08/10/20 22:27 Sulfa (Sulfonamide Allergy Rash Verified 08/10/20 22:27 Antibiotics) Visit Medications: Current Medications Acetaminophen (Acetaminophen 325 Mg Tab) 650 mg PO Q4H PRN PRN Reason: Headache/Fever/Mild Pain (1-3) Aspirin (Aspirin Chewable 81 Mg Tab) 81 mg PO DAILY [facility] Last Admin: 08/13/20 09:29 Dose: 81 mg Documented by: Atorvastatin Calcium (Atorvastatin Calcium 20 Mg Tab) 20 mg PO [facility] Brimonidine Tartrate (Brimonidine Tartrate 0.2% Ophth Soln 5 Ml Bottle) 1 drop EA EYE BID [facility] Last Admin: 08/13/20 09:30 Dose: 1 drop Documented by: Enoxaparin Sodium (Enoxaparin Sodium 40 Mg/0.4 Ml Syringe) 40 mg SC DAILY [facility] Last Admin: 08/13/20 09:30 Dose: 40 mg Documented by: Famotidine (Famotidine 20 Mg Tab) 20 mg PO BID [facility] Fluorometholone (Fluorometholone 0.1% Ophth Soln 5 Ml Bottle) 1 drop R EYE BID [facility] Last Admin: 08/13/20 09:30 Dose: Not Given Documented by: Furosemide (Furosemide 20 Mg Tab) 20 mg PO DAILY [facility] Last Admin: 08/13/20 09:29 Dose: 20 mg Documented by: Gabapentin (Gabapentin 300 Mg Cap) 300 mg PO [facility] Last Admin: 08/12/20 20:51 Dose: 300 mg Documented by: Hydralazine HCl (Hydralazine 20 Mg/Ml Vial) 10 mg SLOW IVP Q4H PRN PRN Reason: SBP > 180 or DBP > 105 Last Admin: 08/12/20 16:35 Dose: 10 mg Documented by: Hydralazine HCl (Hydralazine 25 Mg Tab) 25 mg PO BID [facility] Last Admin: 08/13/20 09:29 Dose: 25 mg Documented by: Latanoprost (Latanoprost 0.005% Ophth Soln 2.5 Ml Bottle) 1 drop EA EYE HS [facility] Last Admin: 08/12/20 20:51 Dose: Not Given Documented by: Lisinopril (Lisinopril 20 Mg Tab) 20 mg PO BID [facility] Last Admin: 08/13/20 09:29 Dose: 20 mg Documented by: Ondansetron HCl (Ondansetron Odt 4 Mg Tab) 4 mg PO Q6H PRN PRN Reason: Nausea/Vomiting Ondansetron HCl (Ondansetron Pf 4 Mg/2 Ml Vial) 4 mg IVP Q6H PRN PRN Reason: Nausea/Vomiting Potassium Chloride (Potassium Chloride 10 Meq Tab) 10 meq PO DAILY [facility] Last Admin: 08/13/20 09:29 Dose: 10 meq Documented by: Sodium Chloride (Flush - Normal Saline 10 Ml Syringe) 10 ml IVF PRN PRN PRN Reason: Saline Flush Last Admin: 08/11/20 23:06 Dose: 10 ml Documented by: Timolol Maleate (Timolol 0.5% Ophth Soln 5 Ml Bottle) 1 drop EA EYE BID [facility] Last Admin: 08/13/20 09:34 Dose: Not Given Documented by: Vital Signs & Weight: Vital Signs Temp Pulse Resp BP BP Pulse Ox 08/13/20 09:29 55 L 179/86 H 08/13/20 08:00 98.1 F 55 L 16 179/86 H 96 08/13/20 04:00 98.3 F 65 20 164/72 H 90 L Weight 179 lb 4 oz - Physical Exam General: alert & oriented x3 HEENT: mucus membranes moist Neck: supple neck Cardiac: regular rate and rhythm Lungs: normal breath sounds Neuro: grossly intact Abdomen: active bowel sounds Extremities: no edema Skin: clear Musculoskeletal: no pain - Labs Result Diagrams: 08/11/20 04:36 08/11/20 04:36 Troponin/CKMB Troponin I 0.016 ng/mL (< 0.028) 08/10/20 21:18 - Telemetry Sinus rhythms and dysrhythmias: sinus rhythm - Assessment/Plan Assessment/Plan: 1. Fatigue 2. Sinus marianela 3. Paroxysmal Afib 4. Tachy marianela syndrome. PLAN: - May discharge home. - He will follow up with Dr Roca this week for PPM placement per patients preference. - No flecainide until after PPM.
--- NOTE | 2020-08-13 16:27 | PDOC.DS.DS ---
Provider Date of Admission: 08/10/20 17:09 Date of Discharge: 08/13/20 Admitting Provider: Michael Cuenca MD Consultations: Cardiology (Dr. Dillard), Electrophysiology (Dr. Ricks) Primary Care Physician: Jeff Segovia MD Course Hospital Course: This is an 84-year-old white male with a history of chronic sinus bradycardia, paroxysmal atrial fibrillation, hypertension, hyperlipidemia, glaucoma, and prostate cancer status post prostatectomy who presented with generalized weakness and some falls. Patient stated that his heart rate ran around normally in the 40s to 50s. He was found to have significant bradycardia down to the 30s during his hospitalization. Patient was evaluated by Dr. Dillard and Dr. Ricks. It was recommended that he have a pacemaker placed. Patient decided that he would like his kitchen stewardess Dr. Roca in [place] to do the pacemaker. Patient's heart rate did improve during his hospitalization and was stable in the 50s to 60s before discharge and so he was declared stable by Dr. Ricks for discharge home and follow-up pacemaker later this week. Dr. Ricks did talk to Dr. Roca office will call the patient and set up the appointment for the pacemaker placement. Patient's flecainide was discontinued during the hospitalization. Pertinent Studies: Echocardiogram Findings: 1. Ejection fraction 55 to 60% 2. Grade 2 out of 3 diastolic dysfunction 3. Mild aortic regurgitation but no aortic stenosis Head CT without contrast HISTORY: Recent fall. Hit head. COMPARISON: 04/16/2020 FINDINGS: Hemorrhage: No intraparenchymal hemorrhage or extra-axial hematoma. Brain parenchyma: Cortical nickerson-white matter differentiation is preserved. No mass effect or midline shift. Basilar cisterns are patent.Stable chronic small vessel ischemic changes of the white matter. 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 Ventricular system: Ventricles and sulci are patent and symmetric. Calvarium: Intact. Sinuses and mastoid air cells: Adequate aeration. IMPRESSION: No acute intracranial process. Carotid Doppler PROVIDED CLINICAL HISTORY: Falls COMPARISON: None FINDINGS: Grayscale and color Doppler sonography with spectral analysis was performed of the extracranial carotid system bilaterally. Atherosclerotic plaque is seen in each carotid bulb. There is no evidence for a hemodynamically significant internal carotid artery stenosis by peak systolic velocity or ratio criteria. Antegrade flow is seen in the vertebral arteries. IMPRESSION: No sonographic evidence for a hemodynamically significant internal carotid artery stenosis. Resuscitation Status: 08/10/20 19:04 Resuscitation Status Routine Co-Sign Provider: Resuscitation Status: FULL: Full Resuscitation Discussed with: patient Lab Results: 08/11/20 04:36 08/11/20 04:36 Vitals: Vital Signs (12 hours) Temp Pulse Resp BP BP Pulse Ox 08/13/20 09:29 55 L 179/86 H 08/13/20 08:00 98.1 F 55 L 16 179/86 H 96 Weight Weight 179 lb 4 oz Physical Exam: The patient was seen and examined on the day of discharge. Problem Assessment: #Sinus bradycardia, persistent #Falls #History of bradycardia #HTN #Glaucoma #Prostate cancer Plan of Treatment: Patient is to discontinue his flecainide and has been discharged home. Dr. Roca's office will contact him to set up the appointment for the pacemaker later this week. Time Spent in discharge related activities (mins): 32 Plan Home Medications: Medication Instructions Recorded Confirmed Type Bimatoprost [Lumigan] 1 drop L EYE HS 04/17/20 08/10/20 History Brimonidine Tartrate/Timolol 1 drop L EYE BID 04/17/20 08/10/20 History [Combigan 0.2%-0.5% Eye Drops] Enalapril Maleate 20 mg PO BID 04/17/20 08/10/20 History Fluorometholone [Flarex 0.1% Ophth 1 drop R EYE BID 04/17/20 08/10/20 History Soln] Furosemide 20 mg PO DAILY 04/17/20 08/10/20 History Gabapentin 300 mg PO HS 04/17/20 08/10/20 History Potassium Chloride [Klor-Con 10] 10 meq PO DAILY 04/17/20 08/10/20 History Simvastatin 40 mg PO HS 04/17/20 08/10/20 History Aspirin [Ecotrin Low Strength] 81 mg PO HS 08/11/20 08/11/20 History Allergies: adhesive tape Allergy (Verified 08/10/20 22:27) Rash per patient iodine Allergy (Verified 08/10/20 22:27) Rash PER patient metronidazole Allergy (Verified 08/10/20 22:27) Rash PER Sulfa (Sulfonamide Antibiotics) Allergy (Verified 08/10/20 22:27) Rash PER Activity:: Activity as Tolerated Nourishment:: Heart Healthy Diet, Low Sodium Diet Therapies:: Not Applicable Equipment/Supplies:: Not Applicable IV Therapy:: Not Applicable Referrals: Jeff Segovia MD [Primary Care Provider] - 7 Days (Please call the office and schedule a follow up appointment) Omi Roca MD [Affiliate] - 3 Days (Follow-up for pacemaker placement later this week. Dr. Roca's office is supposed to call patient to tell him when the surgery will be.) Disposition: HOME Quality CORE MEASURES:: N/A
[2020-08-13] MEDS ORDERED: Atorvastatin Calcium 20 MG TAB PO SCH (21:00)
[2020-08-13] MEDS ORDERED: Famotidine 20 MG TAB PO SCH (21:00)
== END 2020-08-13 15:00 | disposition home or self-care (01) | DRG 308 ==
LOC: ERS 12:19 → ERHOLD 17:09 → 2NO 20:22
PROVIDERS: ADMIT Internal Medicine; ATTEND Emergency Medicine
DX: I49.5 Sick sinus syndrome (principal); I50.33 Acute on chronic diastolic (congestive) heart failure; E78.5 Hyperlipidemia, unspecified; I48.0 Paroxysmal atrial fibrillation; I11.0 Hypertensive heart disease with heart failure; I44.0 Atrioventricular block, first degree; H40.9 Unspecified glaucoma; Z20.822 Contact with and (suspected) exposure to COVID-19; Z85.46 Personal history of malignant neoplasm of prostate; Z90.79 Acquired absence of other genital organ(s); Z98.890 Other specified postprocedural states; Z91.041 Radiographic dye allergy status; Z88.2 Allergy status to sulfonamides; Z88.8 Allergy status to other drugs, medicaments and biological substances; Z79.899 Other long term (current) drug therapy
CPT/HCPCS: 36415; 70450; 71045; 80048; 80053; 80061; 81003; 81015; 82550; 83690; 83735; 83880; 84443; 84484; 85025; 87635; 93005; 93306; 93880; 94760; 96374; J0360; J1650; J1940; U0003; U0005

== ENCOUNTER 2020-10-01 09:17 | Outpatient (CLI) | payer MEDICARE, OTHER ==
[2020-10-01] MEDS ORDERED: Hydrocortisone Sod Succ/PF 100 mg/2 ml Vial IVP SCH (11:15)
[2020-10-01] MEDS ORDERED: Famotidine/PF 20 mg/2ml Vial SLOW IVP SCH (11:15)
[2020-10-01] MEDS ORDERED: diphenhydrAMINE 50 MG/ML VIAL IVP SCH (11:15)
[2020-10-01] MEDS ORDERED: Iopamidol 370 76% 100 ML VIAL ONE (13:03)
== END 2020-10-01 09:18 | disposition home or self-care (01) ==
LOC: CT 09:17
PROVIDERS: ATTEND Radiology Radiation Oncology
DX: C61 Malignant neoplasm of prostate (principal); R97.20 Elevated prostate specific antigen [PSA]; N13.30 Unspecified hydronephrosis; K62.89 Other specified diseases of anus and rectum; Z90.79 Acquired absence of other genital organ(s); Z92.3 Personal history of irradiation
CPT/HCPCS: 74177; 78306; 82565; A9503; J1200; J1720; Q9967; S0028

== ENCOUNTER 2020-12-14 06:05 | Day surgery (SDC) | payer MEDICARE, OTHER ==
[2020-12-13 10:29] VITALS: BMI 26.4
[2020-12-14] MEDS ORDERED: Levofloxacin 500 mg/D5W 100 ml Premix Bag ONE (07:20)
[2020-12-14] MEDS ORDERED: Iothalamate Meglumine 60% 50 ML VIAL FS ONE (07:54)
[2020-12-14] MEDS ORDERED: Ioversol 68 % 50 ML VIAL ONE (07:55)
[2020-12-14] MEDS ORDERED: Fentanyl 100 MCG/2 ML VIAL ONE (08:07)
[2020-12-14] MEDS ORDERED: PHENYLEPHRINE-NS 100 MCG/ML 10 ML SYRINGE ONE (08:08)
[2020-12-14] MEDS ORDERED: Dexamethasone 20 MG/5 ML VIAL ONE (08:08)
[2020-12-14] MEDS ORDERED: PROPOFOL 200 MG/20 ML VIAL ONE (08:08)
[2020-12-14] MEDS ORDERED: Ondansetron PF 4 MG/2 ML Vial ONE (08:08)
[2020-12-14] MEDS ORDERED: Lidocaine 1% PF 5 ML VIAL ONE (08:08)
[2020-12-14] MEDS ORDERED: Phenazopyridine HCl 100 MG TAB ONE (09:15)
[2020-12-14] MEDS ORDERED: Oxybutynin 5 MG TAB ONE (09:15)
== END 2020-12-14 11:27 | disposition home or self-care (01) ==
LOC: SDC 06:05
PROVIDERS: ATTEND Urology
PROC: 0TBC8ZZ Excision of Bladder Neck, Via Natural or Artificial Opening Endoscopic (ICD-10-PCS; principal; 2020-12-14)
PROC: 0TB68ZX Excision of Right Ureter, Via Natural or Artificial Opening Endoscopic, Diagnostic (ICD-10-PCS; 2020-12-14)
PROC: 0T768DZ Dilation of Right Ureter with Intraluminal Device, Via Natural or Artificial Opening Endoscopic (ICD-10-PCS; 2020-12-14)
DX: N13.1 Hydronephrosis with ureteral stricture, not elsewhere classified (principal); N30.80 Other cystitis without hematuria; G60.8 Other hereditary and idiopathic neuropathies; I10 Essential (primary) hypertension; E11.9 Type 2 diabetes mellitus without complications; Z85.46 Personal history of malignant neoplasm of prostate; Z79.01 Long term (current) use of anticoagulants; Z79.899 Other long term (current) drug therapy; Z88.1 Allergy status to other antibiotic agents; Z88.2 Allergy status to sulfonamides; Z91.041 Radiographic dye allergy status; Z91.048 Other nonmedicinal substance allergy status; Z95.0 Presence of cardiac pacemaker
CPT/HCPCS: 74420; 88305; 88307; C2617; J1100; J1956; J2405; J2704; J3010; Q9961; Q9967

== ENCOUNTER 2021-05-03 13:28 | Outpatient (CLI) | payer MEDICARE, OTHER | END 2021-05-03 13:29 | disposition home or self-care (01) | LOC: BICULT 13:28 | PROVIDERS: ATTEND Urology | DX: N13.30 Unspecified hydronephrosis (principal); N28.1 Cyst of kidney, acquired | CPT/HCPCS: 76770 ==

== ENCOUNTER 2022-07-04 16:58 | Inpatient (IN) | payer MEDICARE, BC ==
[2022-07-04 18:18] LABS: Hemoglobin 11.7 g/dL (14.0-18.0); Mean Corpuscular HGB CONC 32.4 g/dL (32.0-36.0); Mean Corpuscular Hemoglobin 31.8 pg (27.0-31.0); Mean Corpuscular Volume 98.3 fl (78.0-98.0); Mean Platelet Volume 6.6 fL (7.4-10.4); Platelet Count 266 10x3/uL (130-400); Red Blood Cell (RBC) Count 3.68 mill/uL (4.70-6.10); White Blood Cell (WBC) Count 12.8 10x3/uL (4.8-10.8)
[2022-07-04 18:40] LABS: ALT (SGPT) 8 U/L (8-55); AST (SGOT) 15 U/L (5-34); Albumin 2.6 g/dL (3.4-4.8); Alkaline Phosphatase 169 U/L (40-110); Anion Gap 11 mmol/L (10-20); BUN (Urea Nitrogen) 34 mg/dL (8.4-25.7); Band 25 % (5-11); Bilirubin, Total 0.7 mg/dL (0.2-1.2); Calc. Creatinine Clearance 0 mL/min (70-130); Calcium 8.8 mg/dL (7.8-10.44); Carbon Dioxide 24 mmol/L (23-31); Chloride 93 mmol/L (98-107); Estimated GFR 56; Globulin 3.2 g/dL (2.4-3.5); Glucose 150 mg/dL (83-110); Lymphocytes 2 % (21-51); MDiff Complete? YES; Metamyelocyte 1 % (0-0); Monocytes 1 % (0-10); Myelocyte 1 % (0-0); Neutrophil 69 % (42-75); Ovalocytes SLIGHT = 2-5 cells (100X) (0-1/hpf); Platelet Morphology Comment Appears Adequate; Polychromasia SLIGHT = 2-3 cells (100X) (0-2/hpf); Potassium 4.8 mmol/L (3.5-5.1); Protein, Total 5.8 g/dL (5.8-8.1); Reactive Lymphocytes 1 % (0-10); Sodium 123 mmol/L (136-145); Vacuoles SLIGHT
[2022-07-04] MEDS ORDERED: Cefepime 2 GM VIAL ONE (19:26)
[2022-07-04] MEDS ORDERED: VANCOMYCIN 2 GRAM/500 ML BAG 2 GM in Premix Bag 1 BAG IVPB SCH (19:30)
[2022-07-04 21:55] LABS: SARS-CoV-2 NAA Rapid Test DETECTED (NotDetected)
[2022-07-04] MEDS ORDERED: Ondansetron ODT 4 MG TAB PO PRN (22:26)
[2022-07-04] MEDS ORDERED: Acetaminophen 325 MG TAB PO PRN (22:26)
[2022-07-04] MEDS ORDERED: Senokot S 8.6-50 MG TAB PO PRN (22:26)
[2022-07-04] MEDS ORDERED: Ondansetron PF 4 MG/2 ML Vial IVP PRN (22:30)
[2022-07-04] MEDS ORDERED: Sodium Chloride 0.9% 1,000 ML IV SCH (22:30)
[2022-07-04] MEDS ORDERED: Ondansetron ODT 4 MG TAB SL PRN (22:30)
[2022-07-04 22:53] LABS: Bilirubin Negative (Negative); Blood, Urine 2+ (Negative); CAUTI Indications for Culture Alt mental st,lethar; Clarity Turbid (Clear); Glucose, Urine (Dipstick) Normal (Negative); Ketone, Urine Negative (Negative); Leukocyte 500 Leu/uL (Negative); Nitrite Negative (Negative); Protein, Urine (Dipstick) 30 mg/dL (Neg-Trace); RBC/HPF 21-50 HPF (0-3); Specific Gravity, Urine 1.022 (1.002-1.036); Squamous Epithelial 0-3 HPF (0-3); Urobilinogen 6 mg/dL (Less than 2); WBC/HPF Greater than 50 HPF (0-3)
[2022-07-04 22:56] LABS: Bacteria/HPF 1+ HPF (None Seen)
[2022-07-04 22:57] LABS: Urine Culture Reflex Yes Yes
[2022-07-05] MEDS ORDERED: OLANZapine 10 MG VIAL IM SCH (03:45)
[2022-07-05] MEDS ORDERED: Sterile Water 10 ML VIAL FS PRN (03:45)
[2022-07-05 06:43] LABS: Hemoglobin 10.6 g/dL (14.0-18.0); Mean Corpuscular HGB CONC 32.6 g/dL (32.0-36.0); Mean Corpuscular Hemoglobin 32.1 pg (27.0-31.0); Mean Corpuscular Volume 98.4 fl (78.0-98.0); Mean Platelet Volume 6.9 fL (7.4-10.4); Platelet Count 257 10x3/uL (130-400); Red Blood Cell (RBC) Count 3.31 mill/uL (4.70-6.10); White Blood Cell (WBC) Count 14.6 10x3/uL (4.8-10.8)
[2022-07-05 06:54] LABS: Anion Gap 14 mmol/L (10-20); BUN (Urea Nitrogen) 35 mg/dL (8.4-25.7); Calc. Creatinine Clearance 48 mL/min (70-130); Calcium 8.3 mg/dL (7.8-10.44); Carbon Dioxide 23 mmol/L (23-31); Chloride 98 mmol/L (98-107); Estimated GFR 57; Glucose 117 mg/dL (83-110); Potassium 4.5 mmol/L (3.5-5.1); Sodium 130 mmol/L (136-145)
[2022-07-05 07:34] LABS: Band 14 % (5-11); Burr Cells SLIGHT = 2-5 cells (100X) (0-1/hpf); Eosinophils 2 % (0-10); Lymphocytes 7 % (21-51); MDiff Complete? YES; Monocytes 2 % (0-10); Neutrophil 73 % (42-75); Platelet Morphology Comment Appears Adequate; Polychromasia SLIGHT = 2-3 cells (100X) (0-2/hpf); Vacuoles SLIGHT
[2022-07-05] MEDS: Furosemide 20 MG TAB PO SCH (09:00)
[2022-07-05] MEDS: Famotidine 20 MG TAB PO SCH (09:00)
[2022-07-05] MEDS: Carvedilol 6.25 MG TAB PO SCH ×3 (09:00→22:14)
[2022-07-05] MEDS: Flecainide 50 MG TAB PO SCH ×3 (09:00→22:15)
[2022-07-05] MEDS: Multivitamin w/Zinc Stress 1 TAB PO SCH (12:15)
[2022-07-05] MEDS: Cefepime 1 GM in Sodium Chloride 0.9% 100 ML IVPB SCH ×2 (12:23→21:55)
[2022-07-05] MEDS ORDERED: NEOSTIGMINE 3 MG/3 ML SYR 3 MG/3 ML SYRINGE IVP SCH (13:15)
[2022-07-05] MEDS ORDERED: cloNIDine 0.1 MG TAB PO PRN (13:52)
[2022-07-05] MEDS: Fluorometholone 0.1% Ophth Soln 5 ml Bottle R EYE SCH (21:55)
[2022-07-05] MEDS: Atorvastatin Calcium 20 MG TAB PO SCH ×2 (21:55→22:15)
[2022-07-05] MEDS: VANCOMYCIN 1.25 GM/250 ML BAG 1.25 GM in Premix Bag 1 BAG IVPB SCH (23:43)
[2022-07-06 05:15] LABS: Anion Gap 14 mmol/L (10-20); BUN (Urea Nitrogen) 41 mg/dL (8.4-25.7); Calc. Creatinine Clearance 47 mL/min (70-130); Calcium 8.5 mg/dL (7.8-10.44); Carbon Dioxide 23 mmol/L (23-31); Chloride 101 mmol/L (98-107); Estimated GFR 55; Glucose 69 mg/dL (83-110); Potassium 4.2 mmol/L (3.5-5.1); Sodium 134 mmol/L (136-145)
[2022-07-06 05:53] LABS: Band 31 % (5-11); Hemoglobin 10.3 g/dL (14.0-18.0); Lymphocytes 1 % (21-51); MDiff Complete? YES; Mean Corpuscular HGB CONC 33.3 g/dL (32.0-36.0); Mean Corpuscular Hemoglobin 33.3 pg (27.0-31.0); Mean Platelet Volume 6.7 fL (7.4-10.4); Microcytosis SLIGHT = 6-15 cells (100X) (0-5/hpf); Neutrophil 68 % (42-75); Ovalocytes SLIGHT = 2-5 cells (100X) (0-1/hpf); Platelet Count 286 10x3/uL (130-400); Platelet Morphology Comment Appears Adequate; Red Blood Cell (RBC) Count 3.09 mill/uL (4.70-6.10); Toxic Granulation SLIGHT; White Blood Cell (WBC) Count 16.5 10x3/uL (4.8-10.8)
[2022-07-06] MEDS: Famotidine 20 MG TAB PO SCH (10:54)
[2022-07-06] MEDS: Carvedilol 6.25 MG TAB PO SCH ×2 (10:54→20:28)
[2022-07-06] MEDS: Furosemide 20 MG TAB PO SCH (10:55)
[2022-07-06] MEDS: Flecainide 50 MG TAB PO SCH ×2 (10:55→20:28)
[2022-07-06] MEDS: Multivitamin w/Zinc Stress 1 TAB PO SCH (10:56)
[2022-07-06] MEDS: Cefepime 1 GM in Sodium Chloride 0.9% 100 ML IVPB SCH ×2 (11:00→20:27)
[2022-07-06] MEDS ORDERED: NEOSTIGMINE 3 MG/3 ML SYR 3 MG/3 ML SYRINGE IVP SCH (12:45)
[2022-07-06] MEDS: Dextrose 5% in Water 1,000 ML IV SCH ×3 (14:49→21:47)
[2022-07-06] MEDS: D MANNOSE 500 MG PO SCH (14:56)
[2022-07-06] MEDS: Fluorometholone 0.1% Ophth Soln 5 ml Bottle R EYE SCH (20:27)
[2022-07-06] MEDS: Atorvastatin Calcium 20 MG TAB PO SCH (20:28)
[2022-07-06 22:33] LABS: Vancomycin, Trough 17.5 ug/mL
[2022-07-06] MEDS: VANCOMYCIN 1.25 GM/250 ML BAG 1.25 GM in Premix Bag 1 BAG IVPB SCH (23:41)
[2022-07-07 04:51] LABS: Anion Gap 10 mmol/L (10-20); BUN (Urea Nitrogen) 33 mg/dL (8.4-25.7); CRP (Inflammatory) 29.36 mg/dL (= or < 0.5); Calc. Creatinine Clearance 55 mL/min (70-130); Calcium 7.9 mg/dL (7.8-10.44); Carbon Dioxide 23 mmol/L (23-31); Chloride 102 mmol/L (98-107); Estimated GFR 67; Glucose 97 mg/dL (83-110); Potassium 3.6 mmol/L (3.5-5.1); Sodium 131 mmol/L (136-145)
[2022-07-07 05:07] LABS: Band 25 % (5-11); Hemoglobin 9.1 g/dL (14.0-18.0); Hypochromia SLIGHT = 6-15 cells (100X) (0-5/hpf); Lymphocytes 6 % (21-51); MDiff Complete? YES; Mean Corpuscular Hemoglobin 32.3 pg (27.0-31.0); Mean Corpuscular Volume 97.8 fl (78.0-98.0); Mean Platelet Volume 6.6 fL (7.4-10.4); Neutrophil 69 % (42-75); Platelet Count 258 10x3/uL (130-400); Platelet Morphology Comment Appears Adequate; RBC Distribution Width 14.1 % (11.5-14.5); Red Blood Cell (RBC) Count 2.82 mill/uL (4.70-6.10); White Blood Cell (WBC) Count 16.3 10x3/uL (4.8-10.8)
[2022-07-07] MEDS ORDERED: FLU VACC QS2022-23(65YR UP)/PF 240 MCG/0.7 ML SYRINGE IM ONE (09:00)
[2022-07-07] MEDS: Cefepime 1 GM in Sodium Chloride 0.9% 100 ML IVPB SCH ×2 (09:32→20:04)
[2022-07-07] MEDS: Dextrose 5% in Water 1,000 ML IV SCH ×3 (09:49→20:09)
[2022-07-07] MEDS: Flecainide 50 MG TAB PO SCH ×2 (09:50→19:59)
[2022-07-07] MEDS: Famotidine 20 MG TAB PO SCH (09:50)
[2022-07-07] MEDS: Carvedilol 6.25 MG TAB PO SCH ×2 (09:50→19:58)
[2022-07-07] MEDS: Furosemide 20 MG TAB PO SCH (09:51)
[2022-07-07] MEDS: Multivitamin w/Zinc Stress 1 TAB PO SCH (09:51)
[2022-07-07] MEDS ORDERED: Ketorolac Tromethamine 30 MG/ML VIAL IVP PRN (10:06)
[2022-07-07] MEDS: Atorvastatin Calcium 20 MG TAB PO SCH (19:58)
[2022-07-07] MEDS: Brimonidine Tartrate 0.2% Ophth Soln 5 ml Bottle L EYE SCH (19:59)
[2022-07-07] MEDS: Fluorometholone 0.1% Ophth Soln 5 ml Bottle R EYE SCH (20:00)
[2022-07-07] MEDS: Timolol 0.5% Ophth Soln 5 ml Bottle L EYE SCH (20:00)
[2022-07-07] MEDS: Latanoprost 0.005% Ophth Soln 2.5 ml Bottle L EYE SCH (20:12)
[2022-07-07] MEDS: VANCOMYCIN 1.25 GM/250 ML BAG 1.25 GM in Premix Bag 1 BAG IVPB SCH (23:47)
[2022-07-08] MEDS ORDERED: OLANZapine 10 MG VIAL IM SCH (04:15)
[2022-07-08] MEDS ORDERED: Sterile Water 10 ML VIAL FS PRN (04:15)
[2022-07-08] MEDS: Cefepime 1 GM in Sodium Chloride 0.9% 100 ML IVPB SCH (08:49)
[2022-07-08] MEDS: Brimonidine Tartrate 0.2% Ophth Soln 5 ml Bottle L EYE SCH ×2 (08:49→22:40)
[2022-07-08] MEDS: Famotidine 20 MG TAB PO SCH (08:50)
[2022-07-08] MEDS: Flecainide 50 MG TAB PO SCH ×2 (08:50→21:12)
[2022-07-08] MEDS: Carvedilol 6.25 MG TAB PO SCH ×2 (08:50→21:12)
[2022-07-08] MEDS: Furosemide 20 MG TAB PO SCH (08:50)
[2022-07-08] MEDS: Multivitamin w/Zinc Stress 1 TAB PO SCH (08:50)
[2022-07-08] MEDS: Timolol 0.5% Ophth Soln 5 ml Bottle L EYE SCH ×2 (08:53→22:42)
[2022-07-08] MEDS: Dextrose 5% in Water 1,000 ML IV SCH (08:53)
[2022-07-08 10:04] LABS: Anion Gap 10 mmol/L (10-20); BUN (Urea Nitrogen) 20 mg/dL (8.4-25.7); CRP (Inflammatory) 22.58 mg/dL (= or < 0.5); Calc. Creatinine Clearance 64 mL/min (70-130); Calcium 8.4 mg/dL (7.8-10.44); Carbon Dioxide 25 mmol/L (23-31); Chloride 98 mmol/L (98-107); Estimated GFR 81; Glucose 80 mg/dL (83-110); Potassium 3.5 mmol/L (3.5-5.1); Sodium 129 mmol/L (136-145)
[2022-07-08 11:19] LABS: Band 13 % (5-11); Eosinophils 3 % (0-10); Hemoglobin 10.3 g/dL (14.0-18.0); Lymphocytes 2 % (21-51); MDiff Complete? YES; Mean Corpuscular HGB CONC 32.8 g/dL (32.0-36.0); Mean Corpuscular Hemoglobin 32.2 pg (27.0-31.0); Mean Corpuscular Volume 98.1 fl (78.0-98.0); Mean Platelet Volume 6.5 fL (7.4-10.4); Monocytes 2 % (0-10); Neutrophil 77 % (42-75); Ovalocytes SLIGHT = 2-5 cells (100X) (0-1/hpf); Platelet Count 255 10x3/uL (130-400); Platelet Morphology Comment Appears Adequate; Polychromasia SLIGHT = 2-3 cells (100X) (0-2/hpf); RBC Distribution Width 13.9 % (11.5-14.5); Reactive Lymphocytes 3 % (0-10); White Blood Cell (WBC) Count 14.8 10x3/uL (4.8-10.8)
[2022-07-08 15:51] LABS: INR-International Normal Ratio 1.3; PTT 36.2 sec (22.9-36.1); Prothrombin Time 16.7 sec (12.0-14.7)
[2022-07-08] MEDS ORDERED: fentaNYL PF 100 MCG/2 ML SYRINGE ONE (15:54)
[2022-07-08] MEDS ORDERED: Norepinephrine 4 MG/4 ML VIAL ONE (15:55)
[2022-07-08] MEDS ORDERED: SUGAMMADEX SODIUM 200 MG/2 ML VIAL ONE (15:55)
[2022-07-08] MEDS ORDERED: Albumin 5% 1,000 ML ONE (16:38)
[2022-07-08] MEDS ORDERED: Phenylephrine 10 MG/ML VIAL ONE (16:38)
[2022-07-08] MEDS ORDERED: Midazolam HCl 2 mg/2 ml Vial ONE (16:56)
[2022-07-08] MEDS ORDERED: Ketamine 50 MG/ML (10ML VIAL) ONE (16:57)
[2022-07-08] MEDS ORDERED: Succinylcholine Chloride 100 MG/5 ML SYRINGE FS ONE (17:28)
[2022-07-08] MEDS ORDERED: PHENYLEPHRINE-NS 100 MCG/ML 10 ML SYRINGE ONE (17:28)
[2022-07-08] MEDS ORDERED: Rocuronium Bromide 10 MG/ML (10ML VIAL) ONE (17:28)
[2022-07-08] MEDS ORDERED: Lidocaine 1% PF 5 ML VIAL ONE (17:28)
[2022-07-08] MEDS ORDERED: Potassium Chloride 20 MEQ/100 ML PREMIX BAG ONE (18:19)
[2022-07-08] MEDS ORDERED: Ventilator Sedation Protocol 1 EACH FS ONE (20:12)
[2022-07-08 20:21] LABS: Actual Bicarbonate (HCO3a) 19.6 mEq/L (22-28); Base Excess (BEa) -2.9 mEq/L (-2.0 to +3.0); CO2 Tension 26.1 mmHg (35.0-45.0); Calcium, Ionized (arterial) 1.07 mmol/L (1.12-1.30); Carboxyhemoglobin (COHb) 0.7 gm% (0.0-3.0); O2 Tension (PaO2), arterial 244.7 mmHg (> 60.0); Potassium - ABG Lab 3.95 mmol/L (3.70-5.30); pH, Arterial 7.49 (7.35-7.45)
[2022-07-08 20:22] LABS: ALV-art Gradient 79.175 mmHg (0-20); Puncture Site LINE
[2022-07-08] MEDS ORDERED: Fentanyl CADD 100 ML ONE (20:23)
[2022-07-08] MEDS ORDERED: Morphine 2 MG/ML VIAL SLOW IVP PRN (20:30)
[2022-07-08] MEDS ORDERED: Propofol 1,000 MG/100 ML VIAL IV PRN (20:30)
[2022-07-08] MEDS ORDERED: Fentanyl BOLUS 250 ML IVPB PRN (20:30)
[2022-07-08] MEDS ORDERED: Fentanyl CADD 100 ML IV SCH (20:30)
[2022-07-08] MEDS ORDERED: DISCONTINUE PREVIOUS NARCOTIC PAIN MEDICATIONS AND BENZODIAZEPINES FS SCH (20:30)
[2022-07-08] MEDS ORDERED: Lorazepam 2 MG/ML VIAL SLOW IVP PRN (20:30)
[2022-07-08] MEDS ORDERED: Propofol BOLUS 1,000 MG/100 ML VIAL IV PRN (20:30)
[2022-07-08] MEDS ORDERED: Dextrose 50% Abboject 50 ML SYRINGE SLOW IVP PRN (20:47)
[2022-07-08] MEDS ORDERED: Dextrose 5% in Water 1,000 ML IV PRN (20:47)
[2022-07-08] MEDS ORDERED: hydrALAZINE 20 MG/ML VIAL SLOW IVP PRN (20:48)
[2022-07-08] MEDS ORDERED: Calcium Chloride 1 GM/10 ML Abboject SYRINGE IVP SCH (21:00)
[2022-07-08] MEDS: Sodium Chloride 0.9% 1,000 ML IV SCH (21:05)
[2022-07-08] MEDS: Atorvastatin Calcium 20 MG TAB PO SCH (21:12)
[2022-07-08 21:14] LABS: Hemoglobin 8.5 g/dL (14.0-18.0); Mean Corpuscular HGB CONC 33.5 g/dL (32.0-36.0); Mean Corpuscular Hemoglobin 32.3 pg (27.0-31.0); Mean Corpuscular Volume 96.5 fl (78.0-98.0); Mean Platelet Volume 6.9 fL (7.4-10.4); Platelet Count 210 10x3/uL (130-400); RBC Distribution Width 13.8 % (11.5-14.5); Red Blood Cell (RBC) Count 2.62 mill/uL (4.70-6.10); White Blood Cell (WBC) Count 11.2 10x3/uL (4.8-10.8)
[2022-07-08 21:32] LABS: MDiff Complete? YES
[2022-07-08 21:33] LABS: Band 17 % (5-11); Hypochromia SLIGHT = 6-15 cells (100X) (0-5/hpf); Lymphocytes 4 % (21-51); Monocytes 7 % (0-10); Neutrophil 69 % (42-75); Platelet Morphology Comment Appears Adequate; Reactive Lymphocytes 3 % (0-10)
[2022-07-08 22:22] LABS: Vancomycin, Trough 18.5 ug/mL
[2022-07-08 22:23] LABS: Anion Gap 13 mmol/L (10-20); BUN (Urea Nitrogen) 16 mg/dL (8.4-25.7); Calc. Creatinine Clearance 71 mL/min (70-130); Calcium 8.4 mg/dL (7.8-10.44); Carbon Dioxide 19 mmol/L (23-31); Chloride 102 mmol/L (98-107); Estimated GFR 85; Glucose 96 mg/dL (83-110); Potassium 3.6 mmol/L (3.5-5.1); Sodium 130 mmol/L (136-145)
[2022-07-08 22:29] LABS: Troponin I 0.012 ng/mL (< 0.028)
[2022-07-08] MEDS: Latanoprost 0.005% Ophth Soln 2.5 ml Bottle L EYE SCH (22:39)
[2022-07-08] MEDS: Pantoprazole 40 MG VIAL IVP SCH (22:40)
[2022-07-08] MEDS: Fluorometholone 0.1% Ophth Soln 5 ml Bottle R EYE SCH (22:42)
[2022-07-08] MEDS: VANCOMYCIN 1.25 GM/250 ML BAG 1.25 GM in Premix Bag 1 BAG IVPB SCH (22:46)
[2022-07-08 22:55] LABS: Magnesium 1.9 mg/dL (1.6-2.6); Phosphorus 1.7 mg/dL (2.3-4.7)
[2022-07-08] MEDS ORDERED: Magnesium 2 GM/50 ML(in water) 2 GM in Premix Bag 1 BAG IVPB SCH (23:00)
[2022-07-08] MEDS ORDERED: Potassium Phosphate 30 MMOL, Magnesium Sulfate 2 GM in Sodium Chloride 0.9% 250 ML IVPB SCH (23:30)
[2022-07-08] MEDS ORDERED: Sodium Chloride 0.9% 500 ML IV SCH (23:30)
[2022-07-09] MEDS: Sodium Chloride 0.9% 1,000 ML IV SCH ×3 (00:15→20:01)
[2022-07-09] MEDS ORDERED: Sodium Chloride 0.9% 500 ML IV SCH ×2 (01:15→02:30)
[2022-07-09] MEDS ORDERED: Hydrocortisone Sod Succ/PF 100 mg/2 ml Vial IVP SCH (02:15)
[2022-07-09 02:25] LABS: Actual Bicarbonate (HCO3a) 20.8 mEq/L (22-28); Base Excess (BEa) -2.3 mEq/L (-2.0 to +3.0); CO2 Tension 28.3 mmHg (35.0-45.0); Calcium, Ionized (arterial) 1.05 mmol/L (1.12-1.30); Carboxyhemoglobin (COHb) 1.4 gm% (0.0-3.0); Hemoglobin (Hb) 6.6 g/dL (14.0-18.0); O2 Tension (PaO2), arterial 146.8 mmHg (> 60.0); Potassium - ABG Lab 3.63 mmol/L (3.70-5.30); pH, Arterial 7.49 (7.35-7.45)
[2022-07-09 02:27] LABS: ALV-art Gradient 103.025 mmHg (0-20); Puncture Site LINE
[2022-07-09] MEDS ORDERED: Calcium Chloride 1 GM/10 ML Abboject SYRINGE IVP SCH (02:45)
[2022-07-09] MEDS ORDERED: Sodium Bicarb 50 MEQ/50 ML VIAL IVP SCH (03:15)
[2022-07-09 03:41] LABS: INR-International Normal Ratio 1.7; PTT 41.7 sec (22.9-36.1); Prothrombin Time 20.4 sec (12.0-14.7)
[2022-07-09 04:22] LABS: Band 4 % (5-11); Hemoglobin 6.5 g/dL (14.0-18.0); Lymphocytes 49 % (21-51); MDiff Complete? YES; Mean Corpuscular HGB CONC 34.2 g/dL (32.0-36.0); Mean Corpuscular Hemoglobin 33.2 pg (27.0-31.0); Mean Corpuscular Volume 97.2 fl (78.0-98.0); Mean Platelet Volume 6.2 fL (7.4-10.4); Metamyelocyte 1 % (0-0); Monocytes 2 % (0-10); Neutrophil 44 % (42-75); Platelet Count 169 10x3/uL (130-400); Platelet Morphology Comment Appears Adequate; Polychromasia SLIGHT = 2-3 cells (100X) (0-2/hpf); RBC Distribution Width 13.9 % (11.5-14.5); Red Blood Cell (RBC) Count 1.94 mill/uL (4.70-6.10); Toxic Granulation SLIGHT; White Blood Cell (WBC) Count 9.3 10x3/uL (4.8-10.8)
[2022-07-09 04:23] LABS: Chloride 108 mmol/L (98-107); Potassium 4.2 mmol/L (3.5-5.1); Sodium 131 mmol/L (136-145)
[2022-07-09 04:25] LABS: Calcium 7.9 mg/dL (7.8-10.44)
[2022-07-09 04:26] LABS: Anion Gap 11 mmol/L (10-20); Carbon Dioxide 16 mmol/L (23-31)
[2022-07-09 04:28] LABS: Calc. Creatinine Clearance 76 mL/min (70-130); Estimated GFR 86
[2022-07-09 04:29] LABS: BUN (Urea Nitrogen) 17 mg/dL (8.4-25.7)
[2022-07-09 04:34] LABS: Phosphorus 3.2 mg/dL (2.3-4.7)
[2022-07-09 05:46] LABS: Glucose 59 mg/dL (83-110)
[2022-07-09 06:58] LABS: Actual Bicarbonate (HCO3a) 17.9 mEq/L (22-28); Base Excess (BEa) -5.5 mEq/L (-2.0 to +3.0); CO2 Tension 27.5 mmHg (35.0-45.0); Calcium, Ionized (arterial) 1.04 mmol/L (1.12-1.30); Hemoglobin (Hb) 8.4 g/dL (14.0-18.0); O2 Tension (PaO2), arterial 123.4 mmHg (> 60.0); Potassium - ABG Lab 3.99 mmol/L (3.70-5.30); pH, Arterial 7.43 (7.35-7.45)
[2022-07-09] MEDS ORDERED: Piperacillin/Tazobactam 3.375 GM in Sodium Chloride 0.9% 100 ML IVPB SCH ×2 (07:15→07:30)
[2022-07-09 07:38] LABS: ALV-art Gradient 127.425 mmHg (0-20); Puncture Site Arterial Line
[2022-07-09] MEDS: Flecainide 50 MG TAB PO SCH ×3 (08:00→21:01)
[2022-07-09] MEDS: Hydrocortisone Sod Succ/PF 100 mg/2 ml Vial IVP SCH ×3 (08:15→23:01)
[2022-07-09] MEDS: Pantoprazole 40 MG VIAL IVP SCH ×2 (08:17→20:00)
[2022-07-09] MEDS: Timolol 0.5% Ophth Soln 5 ml Bottle L EYE SCH ×2 (08:20→20:01)
[2022-07-09] MEDS: Brimonidine Tartrate 0.2% Ophth Soln 5 ml Bottle L EYE SCH ×2 (08:21→20:01)
[2022-07-09] MEDS ORDERED: Calcium Chloride 13.6 MEQ in Sodium Chloride 0.9% 100 ML IVPB SCH (09:00)
[2022-07-09] MEDS: Saccharomyces boulardii 250 MG CAP PO SCH (11:07)
[2022-07-09] MEDS: Piperacillin/Tazobactam 3.375 GM in Sodium Chloride 0.9% 100 ML IVPB SCH ×2 (12:14→20:00)
[2022-07-09 12:44] LABS: Hemoglobin 9.4 g/dL (14.0-18.0); Platelet Count 210 10x3/uL (130-400)
[2022-07-09 12:50] LABS: Glucose 140 mg/dL (83-110)
[2022-07-09 17:00] LABS: Hemoglobin 9.9 g/dL (14.0-18.0); Mean Corpuscular HGB CONC 32.9 g/dL (32.0-36.0); Mean Corpuscular Hemoglobin 31.9 pg (27.0-31.0); Mean Corpuscular Volume 96.8 fl (78.0-98.0); Mean Platelet Volume 6.8 fL (7.4-10.4); Platelet Count 223 10x3/uL (130-400); RBC Distribution Width 13.7 % (11.5-14.5); White Blood Cell (WBC) Count 15.7 10x3/uL (4.8-10.8)
[2022-07-09] MEDS: Acetaminophen/Codeine 30-300mg Tablet PO PRN (17:05)
[2022-07-09 17:14] LABS: Band 12 % (5-11); Lymphocytes 4 % (21-51); MDiff Complete? YES; Metamyelocyte 1 % (0-0); Monocytes 1 % (0-10); Neutrophil 82 % (42-75); Ovalocytes SLIGHT = 2-5 cells (100X) (0-1/hpf); Platelet Morphology Comment Appears Adequate; Polychromasia SLIGHT = 2-3 cells (100X) (0-2/hpf)
[2022-07-09 17:24] LABS: Anion Gap 13 mmol/L (10-20); BUN (Urea Nitrogen) 18 mg/dL (8.4-25.7); Calc. Creatinine Clearance 60 mL/min (70-130); Calcium 8.4 mg/dL (7.8-10.44); Carbon Dioxide 18 mmol/L (23-31); Chloride 106 mmol/L (98-107); Estimated GFR 72; Glucose 169 mg/dL (83-110); Magnesium 2.1 mg/dL (1.6-2.6); Phosphorus 3.5 mg/dL (2.3-4.7); Potassium 4.1 mmol/L (3.5-5.1); Sodium 133 mmol/L (136-145)
[2022-07-09] MEDS ORDERED: Sodium Phosphate 15 MMOL in Sodium Chloride 0.9% 250 ML 250 ML IVPB SCH (17:45)
[2022-07-09] MEDS: Ketorolac Tromethamine 30 MG/ML VIAL IVP SCH ×2 (19:21→23:01)
[2022-07-09] MEDS: HumaLOG 300 UNITS/3 ML VIAL SC PRN (19:22)
[2022-07-09] MEDS: Latanoprost 0.005% Ophth Soln 2.5 ml Bottle L EYE SCH (20:02)
[2022-07-09] MEDS: Fluorometholone 0.1% Ophth Soln 5 ml Bottle R EYE SCH (20:02)
[2022-07-09] MEDS ORDERED: Magnesium 2 GM/50 ML(in water) 2 GM in Premix Bag 1 BAG IVPB SCH (21:00)
[2022-07-09] MEDS: VANCOMYCIN 1.25 GM/250 ML BAG 1.25 GM in Premix Bag 1 BAG IVPB SCH (22:23)
[2022-07-10] MEDS: Piperacillin/Tazobactam 3.375 GM in Sodium Chloride 0.9% 100 ML IVPB SCH ×3 (03:00→20:52)
[2022-07-10] MEDS: Sodium Chloride 0.9% 1,000 ML IV SCH ×3 (03:52→20:52)
[2022-07-10 05:46] LABS: ALT (SGPT) 16 U/L (8-55); AST (SGOT) 19 U/L (5-34); Albumin 2.2 g/dL (3.4-4.8); Alkaline Phosphatase 118 U/L (40-110); Anion Gap 12 mmol/L (10-20); BUN (Urea Nitrogen) 20 mg/dL (8.4-25.7); Bilirubin, Total 0.7 mg/dL (0.2-1.2); Calc. Creatinine Clearance 63 mL/min (70-130); Calcium 7.9 mg/dL (7.8-10.44); Carbon Dioxide 19 mmol/L (23-31); Chloride 108 mmol/L (98-107); Estimated GFR 77; Globulin 2.6 g/dL (2.4-3.5); Glucose 174 mg/dL (83-110); Magnesium 2.4 mg/dL (1.6-2.6); Potassium 3.3 mmol/L (3.5-5.1); Protein, Total 4.8 g/dL (5.8-8.1); Sodium 136 mmol/L (136-145)
[2022-07-10 05:55] LABS: Band 4 % (5-11); Hemoglobin 8.7 g/dL (14.0-18.0); Lymphocytes 7 % (21-51); MDiff Complete? YES; Mean Corpuscular HGB CONC 32.4 g/dL (32.0-36.0); Mean Corpuscular Hemoglobin 31.4 pg (27.0-31.0); Mean Platelet Volume 6.8 fL (7.4-10.4); Monocytes 3 % (0-10); Neutrophil 86 % (42-75); Platelet Count 215 10x3/uL (130-400); Platelet Morphology Comment Appears Adequate; Polychromasia SLIGHT = 2-3 cells (100X) (0-2/hpf); RBC Distribution Width 13.8 % (11.5-14.5); Red Blood Cell (RBC) Count 2.78 mill/uL (4.70-6.10)
[2022-07-10] MEDS: Ketorolac Tromethamine 30 MG/ML VIAL IVP SCH ×2 (05:59→12:05)
[2022-07-10] MEDS: HumaLOG 300 UNITS/3 ML VIAL SC PRN ×2 (06:13→23:45)
[2022-07-10] MEDS: Hydrocortisone Sod Succ/PF 100 mg/2 ml Vial IVP SCH ×3 (08:18→23:40)
[2022-07-10] MEDS: Brimonidine Tartrate 0.2% Ophth Soln 5 ml Bottle L EYE SCH ×2 (08:19→21:42)
[2022-07-10] MEDS: Flecainide 50 MG TAB PO SCH ×2 (08:19→21:44)
[2022-07-10] MEDS: Pantoprazole 40 MG VIAL IVP SCH ×2 (08:19→21:44)
[2022-07-10] MEDS: Saccharomyces boulardii 250 MG CAP PO SCH (08:20)
[2022-07-10] MEDS: Timolol 0.5% Ophth Soln 5 ml Bottle L EYE SCH ×2 (08:21→21:45)
[2022-07-10] MEDS ORDERED: Tamsulosin HCl 0.4 MG CAP PO SCH (16:45)
[2022-07-10] MEDS ORDERED: Hydrocortisone Sod Succ/PF 100 mg/2 ml Vial IVP SCH (17:00)
[2022-07-10 18:05] LABS: Hemoglobin 7.6 g/dL (14.0-18.0)
[2022-07-10] MEDS: Fluorometholone 0.1% Ophth Soln 5 ml Bottle R EYE SCH (21:43)
[2022-07-10] MEDS: Latanoprost 0.005% Ophth Soln 2.5 ml Bottle L EYE SCH (21:46)
[2022-07-10] MEDS: VANCOMYCIN 1.25 GM/250 ML BAG 1.25 GM in Premix Bag 1 BAG IVPB SCH (23:40)
[2022-07-11 04:39] LABS: Anion Gap 9 mmol/L (10-20); Calc. Creatinine Clearance 61 mL/min (70-130); Calcium 7.1 mg/dL (7.8-10.44); Carbon Dioxide 19 mmol/L (23-31); Chloride 113 mmol/L (98-107); Estimated GFR 74; Glucose 139 mg/dL (83-110); Magnesium 2.2 mg/dL (1.6-2.6); Phosphorus 2.9 mg/dL (2.3-4.7); Potassium 3.2 mmol/L (3.5-5.1); Sodium 138 mmol/L (136-145)
[2022-07-11 04:55] LABS: BUN (Urea Nitrogen) 24 mg/dL (8.4-25.7)
[2022-07-11] MEDS: Piperacillin/Tazobactam 3.375 GM in Sodium Chloride 0.9% 100 ML IVPB SCH (04:55)
[2022-07-11] MEDS: Sodium Chloride 0.9% 1,000 ML IV SCH (04:58)
[2022-07-11 05:06] LABS: Band 5 % (5-11); Hemoglobin 6.1 g/dL (14.0-18.0); Lymphocytes 5 % (21-51); MDiff Complete? YES; Mean Corpuscular HGB CONC 33.7 g/dL (32.0-36.0); Mean Corpuscular Hemoglobin 33.1 pg (27.0-31.0); Mean Corpuscular Volume 98.1 fl (78.0-98.0); Mean Platelet Volume 6.7 fL (7.4-10.4); Monocytes 4 % (0-10); Myelocyte 3 % (0-0); Neutrophil 83 % (42-75); Platelet Count 201 10x3/uL (130-400); Polychromasia SLIGHT = 2-3 cells (100X) (0-2/hpf); RBC Distribution Width 13.9 % (11.5-14.5); Red Blood Cell (RBC) Count 1.85 mill/uL (4.70-6.10); Toxic Granulation SLIGHT; White Blood Cell (WBC) Count 14.2 10x3/uL (4.8-10.8)
[2022-07-11] MEDS ORDERED: Potassium Chloride 40 MEQ in Premix Bag 1 BAG IVPB SCH (07:45)
[2022-07-11] MEDS ORDERED: Furosemide 40 MG/4 ML VIAL SLOW IVP SCH (08:15)
[2022-07-11] MEDS: Hydrocortisone Sod Succ/PF 100 mg/2 ml Vial IVP SCH ×2 (08:38→16:26)
[2022-07-11] MEDS: Tamsulosin HCl 0.4 MG CAP PO SCH (08:39)
[2022-07-11] MEDS: Saccharomyces boulardii 250 MG CAP PO SCH (08:39)
[2022-07-11] MEDS: Flecainide 50 MG TAB PO SCH ×2 (08:56→20:52)
[2022-07-11] MEDS: Brimonidine Tartrate 0.2% Ophth Soln 5 ml Bottle L EYE SCH ×2 (08:56→20:41)
[2022-07-11] MEDS: Pantoprazole 40 MG VIAL IVP SCH ×2 (08:57→20:41)
[2022-07-11] MEDS: Timolol 0.5% Ophth Soln 5 ml Bottle L EYE SCH ×2 (08:57→20:46)
[2022-07-11 11:59] LABS: Mean Corpuscular HGB CONC 34.1 g/dL (32.0-36.0); Mean Corpuscular Hemoglobin 32.6 pg (27.0-31.0); Mean Corpuscular Volume 95.8 fl (78.0-98.0); Mean Platelet Volume 6.8 fL (7.4-10.4); Platelet Count 178 10x3/uL (130-400); RBC Distribution Width 13.7 % (11.5-14.5); Red Blood Cell (RBC) Count 2.14 mill/uL (4.70-6.10)
[2022-07-11 12:18] LABS: Band 1 % (5-11); Lymphocytes 3 % (21-51); MDiff Complete? YES; Metamyelocyte 3 % (0-0); Monocytes 3 % (0-10); Myelocyte 2 % (0-0); Neutrophil 87 % (42-75); Platelet Morphology Comment Appears Adequate; RBC Morphology Normal; Reactive Lymphocytes 1 % (0-10)
[2022-07-11] MEDS: Ampicillin/Sulbactam 3 GM in Sodium Chloride 0.9% 100 ML IVPB SCH ×2 (12:57→18:57)
[2022-07-11 15:34] LABS: Hemoglobin 8.8 g/dL (14.0-18.0); Mean Corpuscular HGB CONC 33.4 g/dL (32.0-36.0); Mean Corpuscular Hemoglobin 31.5 pg (27.0-31.0); Mean Corpuscular Volume 94.5 fl (78.0-98.0); Platelet Count 185 10x3/uL (130-400); RBC Distribution Width 13.7 % (11.5-14.5); Red Blood Cell (RBC) Count 2.79 mill/uL (4.70-6.10); White Blood Cell (WBC) Count 15.4 10x3/uL (4.8-10.8)
[2022-07-11 15:56] LABS: Anion Gap 10 mmol/L (10-20); BUN (Urea Nitrogen) 25 mg/dL (8.4-25.7); Calc. Creatinine Clearance 61 mL/min (70-130); Calcium 7.3 mg/dL (7.8-10.44); Carbon Dioxide 18 mmol/L (23-31); Chloride 114 mmol/L (98-107); Estimated GFR 65; Glucose 155 mg/dL (83-110); Magnesium 2.2 mg/dL (1.6-2.6); Potassium 3.4 mmol/L (3.5-5.1); Sodium 139 mmol/L (136-145)
[2022-07-11 15:59] LABS: Band 5 % (5-11); Lymphocytes 6 % (21-51); MDiff Complete? YES; Monocytes 10 % (0-10); Neutrophil 79 % (42-75); Platelet Morphology Comment Appears Adequate; RBC Morphology Normal
[2022-07-11] MEDS ORDERED: Potassium Phosphate 30 MMOL in Sodium Chloride 0.9% 250 ML 250 ML IVPB SCH (16:00)
[2022-07-11] MEDS: Fluorometholone 0.1% Ophth Soln 5 ml Bottle R EYE SCH (20:42)
[2022-07-11] MEDS: Latanoprost 0.005% Ophth Soln 2.5 ml Bottle L EYE SCH (20:46)
[2022-07-11] MEDS ORDERED: Furosemide 20 MG/2 ML VIAL SLOW IVP SCH (22:00)
[2022-07-11] MEDS ORDERED: traZODone HCl 50 MG TAB PER TUBE SCH (22:30)
[2022-07-12] MEDS: Hydrocortisone Sod Succ/PF 100 mg/2 ml Vial IVP SCH ×2 (00:42→11:54)
[2022-07-12] MEDS: Ampicillin/Sulbactam 3 GM in Sodium Chloride 0.9% 100 ML IVPB SCH ×4 (00:42→17:52)
[2022-07-12 04:28] LABS: Anion Gap 12 mmol/L (10-20); BUN (Urea Nitrogen) 25 mg/dL (8.4-25.7); Calc. Creatinine Clearance 58 mL/min (70-130); Calcium 7.3 mg/dL (7.8-10.44); Carbon Dioxide 20 mmol/L (23-31); Chloride 112 mmol/L (98-107); Estimated GFR 62; Glucose 154 mg/dL (83-110); Magnesium 2.1 mg/dL (1.6-2.6); Phosphorus 4.1 mg/dL (2.3-4.7); Potassium 3.2 mmol/L (3.5-5.1); Sodium 141 mmol/L (136-145)
[2022-07-12 05:23] LABS: Band 6 % (5-11); Eosinophils 1 % (0-10); Hemoglobin 8.2 g/dL (14.0-18.0); Lymphocytes 16 % (21-51); MDiff Complete? YES; Mean Corpuscular HGB CONC 34.7 g/dL (32.0-36.0); Mean Corpuscular Hemoglobin 32.3 pg (27.0-31.0); Mean Corpuscular Volume 93.4 fl (78.0-98.0); Monocytes 2 % (0-10); Neutrophil 75 % (42-75); Platelet Count 194 10x3/uL (130-400); RBC Distribution Width 14.1 % (11.5-14.5); Red Blood Cell (RBC) Count 2.54 mill/uL (4.70-6.10); White Blood Cell (WBC) Count 15.2 10x3/uL (4.8-10.8)
[2022-07-12] MEDS ORDERED: Potassium Chloride 40 MEQ in Premix Bag 1 BAG IVPB SCH ×2 (06:00→23:45)
[2022-07-12] MEDS: Brimonidine Tartrate 0.2% Ophth Soln 5 ml Bottle L EYE SCH ×2 (10:18→21:10)
[2022-07-12] MEDS: Furosemide 20 MG TAB PO SCH (10:19)
[2022-07-12] MEDS: Tamsulosin HCl 0.4 MG CAP PO SCH (10:20)
[2022-07-12] MEDS: Flecainide 50 MG TAB PO SCH ×2 (10:20→21:09)
[2022-07-12] MEDS: Saccharomyces boulardii 250 MG CAP PO SCH (10:20)
[2022-07-12] MEDS: Pantoprazole 40 MG VIAL IVP SCH ×2 (10:21→21:08)
[2022-07-12] MEDS: Timolol 0.5% Ophth Soln 5 ml Bottle L EYE SCH ×2 (10:21→21:11)
[2022-07-12] MEDS: Acetaminophen/Codeine 30-300mg Tablet PO PRN (17:53)
[2022-07-12] MEDS: Latanoprost 0.005% Ophth Soln 2.5 ml Bottle L EYE SCH (21:21)
[2022-07-12] MEDS: Fluorometholone 0.1% Ophth Soln 5 ml Bottle R EYE SCH (21:21)
[2022-07-12] MEDS: Melatonin 3 MG TAB PO PRN (21:32)
[2022-07-12 23:29] LABS: Hemoglobin 7.7 g/dL (14.0-18.0); Mean Corpuscular HGB CONC 33.8 g/dL (32.0-36.0); Mean Corpuscular Hemoglobin 31.5 pg (27.0-31.0); Mean Corpuscular Volume 93.3 fl (78.0-98.0); Mean Platelet Volume 6.8 fL (7.4-10.4); Platelet Count 190 10x3/uL (130-400); RBC Distribution Width 14.3 % (11.5-14.5); Red Blood Cell (RBC) Count 2.43 mill/uL (4.70-6.10); White Blood Cell (WBC) Count 13.6 10x3/uL (4.8-10.8)
[2022-07-12 23:33] LABS: Anion Gap 9 mmol/L (10-20); BUN (Urea Nitrogen) 24 mg/dL (8.4-25.7); Calc. Creatinine Clearance 57 mL/min (70-130); Calcium 7.4 mg/dL (7.8-10.44); Carbon Dioxide 25 mmol/L (23-31); Chloride 111 mmol/L (98-107); Estimated GFR 63; Glucose 154 mg/dL (83-110); Potassium 2.9 mmol/L (3.5-5.1); Sodium 142 mmol/L (136-145)
[2022-07-12] MEDS ORDERED: Potassium Bicarbonate/Cit Ac 20 MEQ TAB PER TUBE SCH (23:45)
[2022-07-12 23:54] LABS: Band 5 % (5-11); Lymphocytes 3 % (21-51); MDiff Complete? YES; Monocytes 4 % (0-10); Myelocyte 1 % (0-0); Neutrophil 87 % (42-75); Nucleated RBC 3 % (0); Toxic Granulation SLIGHT
[2022-07-13 04:52] LABS: Hemoglobin 7.7 g/dL (14.0-18.0); Mean Corpuscular Hemoglobin 31.9 pg (27.0-31.0); Mean Corpuscular Volume 93.7 fl (78.0-98.0); Platelet Count 199 10x3/uL (130-400); RBC Distribution Width 14.3 % (11.5-14.5); Red Blood Cell (RBC) Count 2.42 mill/uL (4.70-6.10); White Blood Cell (WBC) Count 14.6 10x3/uL (4.8-10.8)
[2022-07-13 05:22] LABS: Anion Gap 12 mmol/L (10-20); BUN (Urea Nitrogen) 25 mg/dL (8.4-25.7); Calc. Creatinine Clearance 58 mL/min (70-130); Calcium 7.5 mg/dL (7.8-10.44); Carbon Dioxide 24 mmol/L (23-31); Chloride 112 mmol/L (98-107); Estimated GFR 64; Glucose 170 mg/dL (83-110); Magnesium 2.1 mg/dL (1.6-2.6); Potassium 3.7 mmol/L (3.5-5.1); Sodium 144 mmol/L (136-145)
[2022-07-13 05:45] LABS: Band 6 % (5-11); Lymphocytes 4 % (21-51); MDiff Complete? YES; Monocytes 2 % (0-10); Neutrophil 88 % (42-75); Nucleated RBC 3 % (0)
[2022-07-13 06:01] LABS: Phosphorus 2.2 mg/dL (2.3-4.7)
[2022-07-13] MEDS: HumaLOG 300 UNITS/3 ML VIAL SC PRN (06:13)
[2022-07-13] MEDS: Ampicillin/Sulbactam 3 GM in Sodium Chloride 0.9% 100 ML IVPB SCH ×5 (06:14→23:13)
[2022-07-13] MEDS ORDERED: Sodium Phosphate 30 MMOL in Sodium Chloride 0.9% 250 ML 250 ML IVPB SCH (08:30)
[2022-07-13] MEDS: Tamsulosin HCl 0.4 MG CAP PO SCH (10:02)
[2022-07-13] MEDS: Furosemide 20 MG TAB PO SCH (10:02)
[2022-07-13] MEDS: Potassium Chloride 20 MEQ TAB PO SCH (10:02)
[2022-07-13] MEDS: Flecainide 50 MG TAB PO SCH ×2 (10:02→21:26)
[2022-07-13] MEDS: Pantoprazole 40 MG VIAL IVP SCH ×2 (10:03→21:26)
[2022-07-13] MEDS: Saccharomyces boulardii 250 MG CAP PO SCH (10:03)
[2022-07-13] MEDS: Timolol 0.5% Ophth Soln 5 ml Bottle L EYE SCH ×2 (13:10→21:28)
[2022-07-13] MEDS: Brimonidine Tartrate 0.2% Ophth Soln 5 ml Bottle L EYE SCH ×2 (13:10→21:27)
[2022-07-13] MEDS: traZODone HCl 50 MG TAB PO PRN (21:26)
[2022-07-13] MEDS: Fluorometholone 0.1% Ophth Soln 5 ml Bottle R EYE SCH (21:28)
[2022-07-13] MEDS: Latanoprost 0.005% Ophth Soln 2.5 ml Bottle L EYE SCH (21:28)
[2022-07-14 05:06] LABS: Anion Gap 11 mmol/L (10-20); BUN (Urea Nitrogen) 24 mg/dL (8.4-25.7); Calc. Creatinine Clearance 57 mL/min (70-130); Calcium 7.5 mg/dL (7.8-10.44); Carbon Dioxide 25 mmol/L (23-31); Chloride 113 mmol/L (98-107); Estimated GFR 66; Glucose 178 mg/dL (83-110); Magnesium 2.1 mg/dL (1.6-2.6); Potassium 3.4 mmol/L (3.5-5.1); Sodium 146 mmol/L (136-145)
[2022-07-14 05:07] LABS: Phosphorus 3.1 mg/dL (2.3-4.7)
[2022-07-14] MEDS: Ampicillin/Sulbactam 3 GM in Sodium Chloride 0.9% 100 ML IVPB SCH ×3 (06:43→18:42)
[2022-07-14] MEDS ORDERED: Ferrous Sulfate 325 MG TAB PO SCH (08:00)
[2022-07-14] MEDS: Flecainide 50 MG TAB PO SCH ×2 (08:07→20:42)
[2022-07-14] MEDS: Saccharomyces boulardii 250 MG CAP PO SCH (08:07)
[2022-07-14] MEDS: Pantoprazole 40 MG VIAL IVP SCH ×2 (08:07→20:41)
[2022-07-14] MEDS: Ascorbic Acid 500 mg Chewable Tablet PO SCH ×2 (08:07→20:42)
[2022-07-14] MEDS: Tamsulosin HCl 0.4 MG CAP PO SCH (08:08)
[2022-07-14] MEDS: Potassium Chloride 20 MEQ TAB PO SCH (08:08)
[2022-07-14] MEDS: Furosemide 20 MG TAB PO SCH (08:08)
[2022-07-14] MEDS: Brimonidine Tartrate 0.2% Ophth Soln 5 ml Bottle L EYE SCH ×2 (08:08→20:26)
[2022-07-14] MEDS: Timolol 0.5% Ophth Soln 5 ml Bottle L EYE SCH ×2 (08:08→20:26)
[2022-07-14 08:27] LABS: Hemoglobin 6.7 g/dL (14.0-18.0); Mean Corpuscular HGB CONC 33.3 g/dL (32.0-36.0); Mean Corpuscular Hemoglobin 31.8 pg (27.0-31.0); Mean Corpuscular Volume 95.6 fl (78.0-98.0); Mean Platelet Volume 7.2 fL (7.4-10.4); Platelet Count 177 10x3/uL (130-400); RBC Distribution Width 14.4 % (11.5-14.5); White Blood Cell (WBC) Count 15.3 10x3/uL (4.8-10.8)
[2022-07-14] MEDS: Ferrous Sulfate 325 MG TAB PO SCH ×2 (09:03→20:42)
[2022-07-14 11:23] LABS: Band 3 % (5-11); Lymphocytes 10 % (21-51); MDiff Complete? YES; Metamyelocyte 1 % (0-0); Monocytes 4 % (0-10); Myelocyte 3 % (0-0); Neutrophil 79 % (42-75); Platelet Morphology Comment Appears Adequate; Polychromasia SLIGHT = 2-3 cells (100X) (0-2/hpf)
[2022-07-14] MEDS ORDERED: Potassium Chloride 20 MEQ TAB PO SCH (14:45)
[2022-07-14] MEDS: Latanoprost 0.005% Ophth Soln 2.5 ml Bottle L EYE SCH (20:26)
[2022-07-14] MEDS: Fluorometholone 0.1% Ophth Soln 5 ml Bottle R EYE SCH (20:26)
[2022-07-14] MEDS: traZODone HCl 50 MG TAB PO PRN (20:42)
[2022-07-15] MEDS: Ampicillin/Sulbactam 3 GM in Sodium Chloride 0.9% 100 ML IVPB SCH ×4 (00:02→18:39)
[2022-07-15 05:26] LABS: Hemoglobin 9.2 g/dL (14.0-18.0); Mean Corpuscular HGB CONC 34.5 g/dL (32.0-36.0); Mean Corpuscular Hemoglobin 33.4 pg (27.0-31.0); Mean Corpuscular Volume 96.9 fl (78.0-98.0); Mean Platelet Volume 7.3 fL (7.4-10.4); Platelet Count 172 10x3/uL (130-400); RBC Distribution Width 14.2 % (11.5-14.5); Red Blood Cell (RBC) Count 2.74 mill/uL (4.70-6.10); White Blood Cell (WBC) Count 21.8 10x3/uL (4.8-10.8)
[2022-07-15 05:51] LABS: Anion Gap 9 mmol/L (10-20); BUN (Urea Nitrogen) 23 mg/dL (8.4-25.7); Calc. Creatinine Clearance 60 mL/min (70-130); Carbon Dioxide 27 mmol/L (23-31); Chloride 112 mmol/L (98-107); Estimated GFR 70; Glucose 148 mg/dL (83-110); Phosphorus 2.4 mg/dL (2.3-4.7); Potassium 3.4 mmol/L (3.5-5.1); Sodium 145 mmol/L (136-145)
[2022-07-15 06:11] LABS: Band 14 % (5-11); Lymphocytes 4 % (21-51); MDiff Complete? YES; Metamyelocyte 2 % (0-0); Monocytes 7 % (0-10); Myelocyte 5 % (0-0); Neutrophil 68 % (42-75)
[2022-07-15] MEDS ORDERED: Potassium Chloride 20 MEQ TAB PO SCH (07:30)
[2022-07-15] MEDS ORDERED: Potassium Phosphate 30 MMOL in Sodium Chloride 0.9% 250 ML 250 ML IVPB SCH (07:45)
[2022-07-15] MEDS: Ascorbic Acid 500 mg Chewable Tablet PO SCH ×2 (09:46→20:44)
[2022-07-15] MEDS: Furosemide 20 MG TAB PO SCH (09:46)
[2022-07-15] MEDS: Tamsulosin HCl 0.4 MG CAP PO SCH (09:46)
[2022-07-15] MEDS: Ferrous Sulfate 325 MG TAB PO SCH ×2 (09:46→20:44)
[2022-07-15] MEDS: Saccharomyces boulardii 250 MG CAP PO SCH (09:46)
[2022-07-15] MEDS: Brimonidine Tartrate 0.2% Ophth Soln 5 ml Bottle L EYE SCH ×2 (09:46→21:12)
[2022-07-15] MEDS: Flecainide 50 MG TAB PO SCH ×2 (09:46→20:44)
[2022-07-15] MEDS: Timolol 0.5% Ophth Soln 5 ml Bottle L EYE SCH ×2 (09:47→21:00)
[2022-07-15] MEDS: Pantoprazole 40 MG VIAL IVP SCH ×2 (09:47→20:44)
[2022-07-15] MEDS ORDERED: Nitroglycerin 50 MG/250 ML BOT 0 ML ONE (15:00)
[2022-07-15] MEDS ORDERED: predniSONE 20 MG TAB PO SCH (18:33)
[2022-07-15] MEDS ORDERED: prednisoLONE 15 MG/5 ML UDCUP PO SCH (18:45)
[2022-07-15] MEDS ORDERED: diphenhydrAMINE 50 MG/ML VIAL IVP SCH (18:45)
[2022-07-15] MEDS: predniSONE 50 MG TAB PO SCH (20:43)
[2022-07-15] MEDS: Fluorometholone 0.1% Ophth Soln 5 ml Bottle R EYE SCH (20:53)
[2022-07-15] MEDS: Latanoprost 0.005% Ophth Soln 2.5 ml Bottle L EYE SCH (20:53)
[2022-07-15] MEDS: traZODone HCl 50 MG TAB PO PRN (22:09)
[2022-07-15] MEDS: Melatonin 3 MG TAB PO PRN (22:10)
[2022-07-16] MEDS: Ampicillin/Sulbactam 3 GM in Sodium Chloride 0.9% 100 ML IVPB SCH ×5 (00:02→23:08)
[2022-07-16] MEDS ORDERED: predniSONE 5 MG TAB PO SCH ×2 (02:00→08:00)
[2022-07-16] MEDS: predniSONE 50 MG TAB PO SCH ×2 (02:26→08:06)
[2022-07-16 04:21] LABS: Hemoglobin 9.1 g/dL (14.0-18.0); Mean Corpuscular Hemoglobin 31.5 pg (27.0-31.0); Mean Corpuscular Volume 95.5 fl (78.0-98.0); Mean Platelet Volume 7.8 fL (7.4-10.4); Platelet Count 166 10x3/uL (130-400); RBC Distribution Width 14.3 % (11.5-14.5); Red Blood Cell (RBC) Count 2.89 mill/uL (4.70-6.10); White Blood Cell (WBC) Count 19.5 10x3/uL (4.8-10.8)
[2022-07-16 04:43] LABS: Anion Gap 14 mmol/L (10-20); BUN (Urea Nitrogen) 17 mg/dL (8.4-25.7); Calc. Creatinine Clearance 65 mL/min (70-130); Carbon Dioxide 24 mmol/L (23-31); Chloride 109 mmol/L (98-107); Estimated GFR 78; Glucose 214 mg/dL (83-110); Potassium 3.7 mmol/L (3.5-5.1); Sodium 143 mmol/L (136-145)
[2022-07-16 04:57] LABS: Band 1 % (5-11); Lymphocytes 2 % (21-51); MDiff Complete? YES; Monocytes 1 % (0-10); Neutrophil 96 % (42-75); Nucleated RBC 1 % (0); Platelet Morphology Comment Appears Adequate; Polychromasia SLIGHT = 2-3 cells (100X) (0-2/hpf); Toxic Granulation SLIGHT
[2022-07-16] MEDS ORDERED: diphenhydrAMINE 50 MG CAP PO SCH (08:00)
[2022-07-16] MEDS: Ferrous Sulfate 325 MG TAB PO SCH ×2 (08:04→21:07)
[2022-07-16] MEDS: Potassium Bicarbonate/Cit Ac 20 MEQ TAB PO SCH (08:04)
[2022-07-16] MEDS: Ascorbic Acid 500 mg Chewable Tablet PO SCH ×2 (08:04→21:07)
[2022-07-16] MEDS: Tamsulosin HCl 0.4 MG CAP PO SCH (08:05)
[2022-07-16] MEDS: Flecainide 50 MG TAB PO SCH ×2 (08:05→21:07)
[2022-07-16] MEDS: Saccharomyces boulardii 250 MG CAP PO SCH (08:05)
[2022-07-16] MEDS: Furosemide 20 MG TAB PO SCH (08:05)
[2022-07-16] MEDS: Pantoprazole 40 MG VIAL IVP SCH (08:06)
[2022-07-16] MEDS: Timolol 0.5% Ophth Soln 5 ml Bottle L EYE SCH ×2 (08:06→21:08)
[2022-07-16] MEDS: Brimonidine Tartrate 0.2% Ophth Soln 5 ml Bottle L EYE SCH ×2 (08:06→21:08)
[2022-07-16] MEDS ORDERED: Iopamidol-370 76% 500 ML 1 ML ONE (08:48)
[2022-07-16] MEDS: Carvedilol 6.25 MG TAB PO SCH (13:05)
[2022-07-16] MEDS ORDERED: Furosemide 20 MG/2 ML VIAL SLOW IVP SCH (17:00)
[2022-07-16] MEDS ORDERED: Carvedilol 25 MG TAB PO SCH (17:00)
[2022-07-16] MEDS: HumaLOG 300 UNITS/3 ML VIAL SC PRN ×2 (17:53→21:09)
[2022-07-16] MEDS: Latanoprost 0.005% Ophth Soln 2.5 ml Bottle L EYE SCH (21:08)
[2022-07-16] MEDS: Fluorometholone 0.1% Ophth Soln 5 ml Bottle R EYE SCH (21:08)
[2022-07-17] MEDS: Ampicillin/Sulbactam 3 GM in Sodium Chloride 0.9% 100 ML IVPB SCH ×4 (06:32→23:43)
[2022-07-17 06:58] LABS: #Basophils 0.1 thou/uL (0.0-0.2); #Lymphocytes 0.9 thou/uL (1.20-3.40); #Monocytes 0.6 thou/uL (0.11-0.59); #Neutrophils 14.5 thou/uL (1.40-6.50); %Basophils 0.6 % (0.0-1.0); %Eosinophils 0.3 % (0.0-10.0); %Lymphocytes 5.5 % (21.0-51.0); %Monocytes 3.6 % (0.0-10.0); Hemoglobin 8.4 g/dL (14.0-18.0); Mean Corpuscular HGB CONC 33.8 g/dL (32.0-36.0); Mean Corpuscular Hemoglobin 33.2 pg (27.0-31.0); Mean Corpuscular Volume 98.2 fl (78.0-98.0); Mean Platelet Volume 7.6 fL (7.4-10.4); Platelet Count 176 10x3/uL (130-400); Red Blood Cell (RBC) Count 2.54 mill/uL (4.70-6.10); White Blood Cell (WBC) Count 16.1 10x3/uL (4.8-10.8)
[2022-07-17 07:18] LABS: Anion Gap 13 mmol/L (10-20); BUN (Urea Nitrogen) 17 mg/dL (8.4-25.7); Calc. Creatinine Clearance 61 mL/min (70-130); Calcium 7.9 mg/dL (7.8-10.44); Carbon Dioxide 27 mmol/L (23-31); Chloride 103 mmol/L (98-107); Estimated GFR 70; Glucose 180 mg/dL (83-110); Magnesium 1.9 mg/dL (1.6-2.6); Potassium 3.2 mmol/L (3.5-5.1); Sodium 140 mmol/L (136-145)
[2022-07-17 07:25] LABS: Lipase 24 U/L (8-78); Phosphorus 2.4 mg/dL (2.3-4.7)
[2022-07-17] MEDS ORDERED: Magnesium 2 GM/50 ML(in water) 2 GM in Premix Bag 1 BAG IVPB SCH (08:00)
[2022-07-17] MEDS: Saccharomyces boulardii 250 MG CAP PO SCH (08:31)
[2022-07-17] MEDS: Carvedilol 6.25 MG TAB PO SCH ×2 (08:31→16:35)
[2022-07-17] MEDS: Tamsulosin HCl 0.4 MG CAP PO SCH (08:31)
[2022-07-17] MEDS: Flecainide 50 MG TAB PO SCH ×2 (08:31→21:22)
[2022-07-17] MEDS: Ferrous Sulfate 325 MG TAB PO SCH ×2 (08:32→21:22)
[2022-07-17] MEDS: Potassium Bicarbonate/Cit Ac 20 MEQ TAB PO SCH (08:32)
[2022-07-17] MEDS: Ascorbic Acid 500 mg Chewable Tablet PO SCH ×2 (08:32→21:22)
[2022-07-17] MEDS: Brimonidine Tartrate 0.2% Ophth Soln 5 ml Bottle L EYE SCH ×2 (08:32→21:35)
[2022-07-17] MEDS: Furosemide 20 MG TAB PO SCH (08:32)
[2022-07-17] MEDS: Timolol 0.5% Ophth Soln 5 ml Bottle L EYE SCH ×2 (08:33→21:37)
[2022-07-17] MEDS ORDERED: Potassium Phosphate 30 MMOL in Sodium Chloride 0.9% 250 ML 250 ML IVPB SCH (09:00)
[2022-07-17] MEDS: Amlodipine 5 MG TAB PO SCH (09:47)
[2022-07-17] MEDS ORDERED: Potassium Chloride 20 MEQ TAB PO SCH (15:15)
[2022-07-17] MEDS: Acetaminophen/Codeine 30-300mg Tablet PO PRN (16:35)
[2022-07-17] MEDS: Fluorometholone 0.1% Ophth Soln 5 ml Bottle R EYE SCH (21:36)
[2022-07-17] MEDS: Latanoprost 0.005% Ophth Soln 2.5 ml Bottle L EYE SCH (21:38)
[2022-07-18] MEDS: Acetaminophen/Codeine 30-300mg Tablet PO PRN (01:19)
[2022-07-18 05:53] LABS: #Eosinphils 0.1 thou/uL (0.0-0.7); #Lymphocytes 0.8 thou/uL (1.20-3.40); #Monocytes 0.7 thou/uL (0.11-0.59); #Neutrophils 10.3 thou/uL (1.40-6.50); %Basophils 0.2 % (0.0-1.0); %Eosinophils 1.2 % (0.0-10.0); %Lymphocytes 6.8 % (21.0-51.0); %Monocytes 5.6 % (0.0-10.0); %Neutrophils 86.2 % (42.0-75.0); Hemoglobin 7.8 g/dL (14.0-18.0); Mean Corpuscular HGB CONC 32.6 g/dL (32.0-36.0); Mean Corpuscular Hemoglobin 32.3 pg (27.0-31.0); Mean Corpuscular Volume 99.2 fl (78.0-98.0); Mean Platelet Volume 7.5 fL (7.4-10.4); Platelet Count 159 10x3/uL (130-400); RBC Distribution Width 15.6 % (11.5-14.5); Red Blood Cell (RBC) Count 2.42 mill/uL (4.70-6.10)
[2022-07-18] MEDS: HumaLOG 300 UNITS/3 ML VIAL SC PRN (06:18)
[2022-07-18] MEDS: Ampicillin/Sulbactam 3 GM in Sodium Chloride 0.9% 100 ML IVPB SCH ×3 (06:18→17:14)
[2022-07-18] MEDS: Brimonidine Tartrate 0.2% Ophth Soln 5 ml Bottle L EYE SCH ×2 (08:06→20:57)
[2022-07-18] MEDS: Timolol 0.5% Ophth Soln 5 ml Bottle L EYE SCH ×2 (08:06→20:58)
[2022-07-18] MEDS: Furosemide 20 MG TAB PO SCH (08:07)
[2022-07-18] MEDS: Flecainide 50 MG TAB PO SCH ×2 (08:07→20:43)
[2022-07-18] MEDS: Ascorbic Acid 500 mg Chewable Tablet PO SCH ×2 (08:07→20:44)
[2022-07-18] MEDS: Carvedilol 6.25 MG TAB PO SCH ×2 (08:07→17:14)
[2022-07-18] MEDS: Saccharomyces boulardii 250 MG CAP PO SCH (08:07)
[2022-07-18] MEDS: Potassium Bicarbonate/Cit Ac 20 MEQ TAB PO SCH (08:07)
[2022-07-18] MEDS: Ferrous Sulfate 325 MG TAB PO SCH ×2 (08:08→20:44)
[2022-07-18] MEDS: Tamsulosin HCl 0.4 MG CAP PO SCH (08:08)
[2022-07-18] MEDS: Amlodipine 5 MG TAB PO SCH (08:08)
[2022-07-18] MEDS: Iron, Sodium Ferric Gluconate 125 MG in Sodium Chloride 0.9% 100 ML IVPB SCH (18:18)
[2022-07-18] MEDS: Latanoprost 0.005% Ophth Soln 2.5 ml Bottle L EYE SCH (20:58)
[2022-07-18] MEDS: Fluorometholone 0.1% Ophth Soln 5 ml Bottle R EYE SCH (20:59)
[2022-07-19] MEDS: Ampicillin/Sulbactam 3 GM in Sodium Chloride 0.9% 100 ML IVPB SCH ×4 (00:32→19:12)
[2022-07-19 05:41] LABS: #Eosinphils 0.1 thou/uL (0.0-0.7); #Lymphocytes 0.8 thou/uL (1.20-3.40); #Monocytes 0.5 thou/uL (0.11-0.59); #Neutrophils 8.4 thou/uL (1.40-6.50); %Basophils 0.1 % (0.0-1.0); %Eosinophils 1.3 % (0.0-10.0); %Lymphocytes 7.9 % (21.0-51.0); %Monocytes 5.3 % (0.0-10.0); %Neutrophils 85.4 % (42.0-75.0); Mean Corpuscular Hemoglobin 33.5 pg (27.0-31.0); Mean Corpuscular Volume 98.5 fl (78.0-98.0); Mean Platelet Volume 7.7 fL (7.4-10.4); Platelet Count 147 10x3/uL (130-400); RBC Distribution Width 15.5 % (11.5-14.5); White Blood Cell (WBC) Count 9.8 10x3/uL (4.8-10.8)
[2022-07-19 05:57] LABS: Anion Gap 10 mmol/L (10-20); BUN (Urea Nitrogen) 19 mg/dL (8.4-25.7); Calc. Creatinine Clearance 61 mL/min (70-130); Calcium 7.7 mg/dL (7.8-10.44); Carbon Dioxide 29 mmol/L (23-31); Chloride 99 mmol/L (98-107); Estimated GFR 71; Glucose 126 mg/dL (83-110); Magnesium 1.9 mg/dL (1.6-2.6); Phosphorus 2.4 mg/dL (2.3-4.7); Potassium 3.3 mmol/L (3.5-5.1); Sodium 135 mmol/L (136-145)
[2022-07-19] MEDS ORDERED: Potassium Chloride 20 MEQ TAB PO SCH ×2 (08:00→08:30)
[2022-07-19] MEDS: Flecainide 50 MG TAB PO SCH ×2 (09:02→20:36)
[2022-07-19] MEDS: Potassium Bicarbonate/Cit Ac 20 MEQ TAB PO SCH (09:02)
[2022-07-19] MEDS: Carvedilol 6.25 MG TAB PO SCH ×2 (09:02→19:11)
[2022-07-19] MEDS: Ascorbic Acid 500 mg Chewable Tablet PO SCH ×2 (09:02→20:37)
[2022-07-19] MEDS: Amlodipine 5 MG TAB PO SCH (09:03)
[2022-07-19] MEDS: Saccharomyces boulardii 250 MG CAP PO SCH (09:03)
[2022-07-19] MEDS: Ferrous Sulfate 325 MG TAB PO SCH ×2 (09:03→20:37)
[2022-07-19] MEDS: Tamsulosin HCl 0.4 MG CAP PO SCH (09:03)
[2022-07-19] MEDS: Furosemide 20 MG TAB PO SCH (09:03)
[2022-07-19] MEDS: Brimonidine Tartrate 0.2% Ophth Soln 5 ml Bottle L EYE SCH ×2 (09:04→20:38)
[2022-07-19] MEDS: Timolol 0.5% Ophth Soln 5 ml Bottle L EYE SCH ×2 (09:04→20:37)
[2022-07-19] MEDS: Iron, Sodium Ferric Gluconate 125 MG in Sodium Chloride 0.9% 100 ML IVPB SCH (19:12)
[2022-07-19] MEDS: Floranex 1 GM Packet PO SCH (20:36)
[2022-07-19] MEDS: Latanoprost 0.005% Ophth Soln 2.5 ml Bottle L EYE SCH (20:38)
[2022-07-19] MEDS: Fluorometholone 0.1% Ophth Soln 5 ml Bottle R EYE SCH (20:38)
[2022-07-20] MEDS: Ampicillin/Sulbactam 3 GM in Sodium Chloride 0.9% 100 ML IVPB SCH ×5 (00:22→23:34)
[2022-07-20 06:37] LABS: #Eosinphils 0.2 thou/uL (0.0-0.7); #Lymphocytes 0.9 thou/uL (1.20-3.40); #Monocytes 0.5 thou/uL (0.11-0.59); #Neutrophils 7.7 thou/uL (1.40-6.50); %Basophils 0.3 % (0.0-1.0); %Eosinophils 1.9 % (0.0-10.0); %Lymphocytes 9.3 % (21.0-51.0); %Monocytes 5.7 % (0.0-10.0); %Neutrophils 82.8 % (42.0-75.0); Hemoglobin 8.2 g/dL (14.0-18.0); Mean Corpuscular HGB CONC 33.1 g/dL (32.0-36.0); Mean Corpuscular Hemoglobin 32.9 pg (27.0-31.0); Mean Corpuscular Volume 99.5 fl (78.0-98.0); Mean Platelet Volume 7.9 fL (7.4-10.4); Platelet Count 161 10x3/uL (130-400); RBC Distribution Width 15.8 % (11.5-14.5); White Blood Cell (WBC) Count 9.2 10x3/uL (4.8-10.8)
[2022-07-20 06:57] LABS: Anion Gap 10 mmol/L (10-20); BUN (Urea Nitrogen) 18 mg/dL (8.4-25.7); Calc. Creatinine Clearance 57 mL/min (70-130); Carbon Dioxide 27 mmol/L (23-31); Chloride 97 mmol/L (98-107); Estimated GFR 65; Glucose 159 mg/dL (83-110); Potassium 3.7 mmol/L (3.5-5.1); Sodium 130 mmol/L (136-145)
[2022-07-20] MEDS ORDERED: Bisacodyl 10 MG SUPP PR SCH (08:45)
[2022-07-20] MEDS: Brimonidine Tartrate 0.2% Ophth Soln 5 ml Bottle L EYE SCH ×2 (10:34→20:21)
[2022-07-20] MEDS: Furosemide 20 MG TAB PO SCH (10:35)
[2022-07-20] MEDS: Ascorbic Acid 500 mg Chewable Tablet PO SCH ×2 (10:35→20:20)
[2022-07-20] MEDS: Saccharomyces boulardii 250 MG CAP PO SCH (10:36)
[2022-07-20] MEDS: Amlodipine 5 MG TAB PO SCH (10:36)
[2022-07-20] MEDS: Flecainide 50 MG TAB PO SCH ×2 (10:36→20:20)
[2022-07-20] MEDS: Ferrous Sulfate 325 MG TAB PO SCH ×2 (10:36→20:20)
[2022-07-20] MEDS: Polyethylene Glycol 3350 17 GM Packet PO SCH (10:38)
[2022-07-20] MEDS: Timolol 0.5% Ophth Soln 5 ml Bottle L EYE SCH ×2 (10:39→20:22)
[2022-07-20] MEDS: Tamsulosin HCl 0.4 MG CAP PO SCH (10:41)
[2022-07-20] MEDS: Potassium Bicarbonate/Cit Ac 20 MEQ TAB PO SCH (10:54)
[2022-07-20] MEDS: Carvedilol 6.25 MG TAB PO SCH ×2 (10:54→17:06)
[2022-07-20] MEDS: valACYclovir 500 MG TAB PO SCH (11:00)
[2022-07-20] MEDS: Floranex 1 GM Packet PO SCH ×2 (11:00→20:20)
[2022-07-20] MEDS: Iron, Sodium Ferric Gluconate 125 MG in Sodium Chloride 0.9% 100 ML IVPB SCH (18:14)
[2022-07-20] MEDS: Mupirocin 2% Ointment 22 GM Tube TOP SCH ×2 (19:38→20:21)
[2022-07-20] MEDS: Acetaminophen/Codeine 30-300mg Tablet PO PRN (20:20)
[2022-07-20] MEDS: Melatonin 3 MG TAB PO PRN (20:20)
[2022-07-20] MEDS: Fluorometholone 0.1% Ophth Soln 5 ml Bottle R EYE SCH (20:21)
[2022-07-20] MEDS: Latanoprost 0.005% Ophth Soln 2.5 ml Bottle L EYE SCH (20:21)
[2022-07-21 05:53] LABS: #Eosinphils 0.2 thou/uL (0.0-0.7); #Lymphocytes 0.8 thou/uL (1.20-3.40); #Monocytes 0.4 thou/uL (0.11-0.59); %Basophils 0.4 % (0.0-1.0); %Eosinophils 2.3 % (0.0-10.0); %Lymphocytes 10.3 % (21.0-51.0); %Monocytes 5.8 % (0.0-10.0); %Neutrophils 81.2 % (42.0-75.0); Mean Corpuscular Volume 99.8 fl (78.0-98.0); Mean Platelet Volume 7.9 fL (7.4-10.4); Platelet Count 135 10x3/uL (130-400); RBC Distribution Width 16.1 % (11.5-14.5); Red Blood Cell (RBC) Count 2.44 mill/uL (4.70-6.10); White Blood Cell (WBC) Count 7.4 10x3/uL (4.8-10.8)
[2022-07-21 06:07] LABS: Anion Gap 12 mmol/L (10-20); BUN (Urea Nitrogen) 14 mg/dL (8.4-25.7); Calc. Creatinine Clearance 61 mL/min (70-130); Calcium 8.2 mg/dL (7.8-10.44); Carbon Dioxide 26 mmol/L (23-31); Chloride 97 mmol/L (98-107); Estimated GFR 70; Glucose 137 mg/dL (83-110); Potassium 3.5 mmol/L (3.5-5.1); Sodium 131 mmol/L (136-145)
[2022-07-21] MEDS: Ampicillin/Sulbactam 3 GM in Sodium Chloride 0.9% 100 ML IVPB SCH ×3 (06:08→19:31)
[2022-07-21] MEDS: Flecainide 50 MG TAB PO SCH ×2 (08:55→23:33)
[2022-07-21] MEDS: Amlodipine 5 MG TAB PO SCH (08:56)
[2022-07-21] MEDS: Carvedilol 6.25 MG TAB PO SCH ×2 (08:58→17:19)
[2022-07-21] MEDS: Tamsulosin HCl 0.4 MG CAP PO SCH (08:58)
[2022-07-21] MEDS: Ascorbic Acid 500 mg Chewable Tablet PO SCH ×2 (08:58→23:33)
[2022-07-21] MEDS: Ferrous Sulfate 325 MG TAB PO SCH ×2 (08:59→23:33)
[2022-07-21] MEDS: Saccharomyces boulardii 250 MG CAP PO SCH (08:59)
[2022-07-21] MEDS: Furosemide 20 MG TAB PO SCH (08:59)
[2022-07-21] MEDS: Timolol 0.5% Ophth Soln 5 ml Bottle L EYE SCH ×2 (09:00→23:35)
[2022-07-21] MEDS: Mupirocin 2% Ointment 22 GM Tube TOP SCH ×3 (09:00→23:37)
[2022-07-21] MEDS: Brimonidine Tartrate 0.2% Ophth Soln 5 ml Bottle L EYE SCH ×2 (09:00→23:36)
[2022-07-21] MEDS: Potassium Bicarbonate/Cit Ac 20 MEQ TAB PO SCH (09:15)
[2022-07-21] MEDS: Polyethylene Glycol 3350 17 GM Packet PO SCH (09:15)
[2022-07-21] MEDS: Floranex 1 GM Packet PO SCH ×2 (09:15→23:34)
[2022-07-21] MEDS: valACYclovir 500 MG TAB PO SCH (10:39)
[2022-07-21 11:39] VITALS: BMI 24.1
[2022-07-21] MEDS ORDERED: Iopamidol 45 ML ONE (13:05)
[2022-07-21] MEDS ORDERED: Rocuronium Bromide 10 MG/ML (10ML VIAL) ONE (13:28)
[2022-07-21] MEDS ORDERED: PROPOFOL 200 MG/20 ML VIAL ONE (13:28)
[2022-07-21] MEDS ORDERED: ePHEDrine 50 MG/ML VIAL ONE (13:28)
[2022-07-21] MEDS ORDERED: Lidocaine 1% PF 5 ML VIAL ONE (13:28)
[2022-07-21] MEDS ORDERED: PHENYLEPHRINE-NS 100 MCG/ML 10 ML SYRINGE ONE (13:28)
[2022-07-21] MEDS ORDERED: SUGAMMADEX SODIUM 200 MG/2 ML VIAL ONE (13:35)
[2022-07-21] MEDS ORDERED: ePHEDrine Sulfate 50 MG/10 ML VIAL ONE (14:44)
[2022-07-21] MEDS: Acetaminophen/Codeine 30-300mg Tablet PO PRN ×2 (17:17→23:34)
[2022-07-21] MEDS: Iron, Sodium Ferric Gluconate 125 MG in Sodium Chloride 0.9% 100 ML IVPB SCH (18:23)
[2022-07-21] MEDS: Bacitracin Zinc Ointment 30 gm TUBE TOP SCH (23:34)
[2022-07-21] MEDS: Latanoprost 0.005% Ophth Soln 2.5 ml Bottle L EYE SCH (23:38)
[2022-07-21] MEDS: Fluorometholone 0.1% Ophth Soln 5 ml Bottle R EYE SCH (23:38)
[2022-07-22] MEDS: Ampicillin/Sulbactam 3 GM in Sodium Chloride 0.9% 100 ML IVPB SCH ×3 (01:14→11:26)
[2022-07-22 06:11] LABS: #Eosinphils 0.2 thou/uL (0.0-0.7); #Lymphocytes 0.7 thou/uL (1.20-3.40); #Monocytes 0.3 thou/uL (0.11-0.59); #Neutrophils 7.6 thou/uL (1.40-6.50); %Basophils 0.1 % (0.0-1.0); %Eosinophils 1.7 % (0.0-10.0); %Lymphocytes 8.1 % (21.0-51.0); %Monocytes 3.7 % (0.0-10.0); %Neutrophils 86.4 % (42.0-75.0); Hemoglobin 7.8 g/dL (14.0-18.0); Mean Corpuscular HGB CONC 33.1 g/dL (32.0-36.0); Mean Corpuscular Hemoglobin 33.1 pg (27.0-31.0); Mean Platelet Volume 8.1 fL (7.4-10.4); Platelet Count 142 10x3/uL (130-400); RBC Distribution Width 16.9 % (11.5-14.5); Red Blood Cell (RBC) Count 2.36 mill/uL (4.70-6.10); White Blood Cell (WBC) Count 8.8 10x3/uL (4.8-10.8)
[2022-07-22 06:28] LABS: Anion Gap 11 mmol/L (10-20); BUN (Urea Nitrogen) 13 mg/dL (8.4-25.7); Calc. Creatinine Clearance 61 mL/min (70-130); Calcium 7.9 mg/dL (7.8-10.44); Carbon Dioxide 27 mmol/L (23-31); Chloride 98 mmol/L (98-107); Estimated GFR 70; Glucose 106 mg/dL (83-110); Potassium 3.3 mmol/L (3.5-5.1); Sodium 133 mmol/L (136-145)
[2022-07-22] MEDS: Ascorbic Acid 500 mg Chewable Tablet PO SCH (08:45)
[2022-07-22] MEDS: Saccharomyces boulardii 250 MG CAP PO SCH (08:45)
[2022-07-22] MEDS: Furosemide 20 MG TAB PO SCH (08:46)
[2022-07-22] MEDS: Flecainide 50 MG TAB PO SCH (08:46)
[2022-07-22] MEDS: Tamsulosin HCl 0.4 MG CAP PO SCH (08:46)
[2022-07-22] MEDS: Ferrous Sulfate 325 MG TAB PO SCH (08:49)
[2022-07-22] MEDS: Potassium Bicarbonate/Cit Ac 20 MEQ TAB PO SCH (08:50)
[2022-07-22] MEDS: Brimonidine Tartrate 0.2% Ophth Soln 5 ml Bottle L EYE SCH (08:51)
[2022-07-22] MEDS: Bacitracin Zinc Ointment 30 gm TUBE TOP SCH (08:51)
[2022-07-22] MEDS: Timolol 0.5% Ophth Soln 5 ml Bottle L EYE SCH (08:51)
[2022-07-22] MEDS: Amlodipine 5 MG TAB PO SCH (09:00)
[2022-07-22] MEDS: Carvedilol 6.25 MG TAB PO SCH (09:00)
[2022-07-22] MEDS: Polyethylene Glycol 3350 17 GM Packet PO SCH (09:01)
[2022-07-22] MEDS: Mupirocin 2% Ointment 22 GM Tube TOP SCH (09:02)
[2022-07-22] MEDS ORDERED: Potassium Chloride 20 MEQ TAB PO SCH (10:00)
[2022-07-22] MEDS: valACYclovir 500 MG TAB PO SCH (11:10)
[2022-07-22 14:15] VITALS: BP 122/66; TEMP 97.7
== END 2022-07-22 13:36 | DRG 853 ==
LOC: ERS 16:58 → T4-A 20:46 → 2NO 07-05 15:16 → CCU 07-08 18:57 → IMCU/EMU 07-12 07:48 → SJJU 07-16 15:19
PROVIDERS: ADMIT Student in an Organized Health Care Education/Training Program; ATTEND Hospitalist
PROC: 8E0ZXY6 Isolation (ICD-10-PCS; 2022-07-04)
PROC: 3E03329 Introduction of Other Anti-infective into Peripheral Vein, Percutaneous Approach (ICD-10-PCS; 2022-07-04)
PROC: 0D1B0Z4 Bypass Ileum to Cutaneous, Open Approach (ICD-10-PCS; 2022-07-08)
PROC: 0DTF0ZZ Resection of Right Large Intestine, Open Approach (ICD-10-PCS; 2022-07-08)
PROC: 3E0M05Z Introduction of Adhesion Barrier into Peritoneal Cavity, Open Approach (ICD-10-PCS; 2022-07-08)
PROC: 02HV33Z Insertion of Infusion Device into Superior Vena Cava, Percutaneous Approach (ICD-10-PCS; 2022-07-08)
PROC: 30233N1 Transfusion of Nonautologous Red Blood Cells into Peripheral Vein, Percutaneous Approach (ICD-10-PCS; principal; 2022-07-09)
PROC: 0T768DZ Dilation of Right Ureter with Intraluminal Device, Via Natural or Artificial Opening Endoscopic (ICD-10-PCS; 2022-07-21)
PROC: BT1D1ZZ Fluoroscopy of Right Kidney, Ureter and Bladder using Low Osmolar Contrast (ICD-10-PCS; 2022-07-21)
DX: A41.81 Sepsis due to Enterococcus (principal); G93.41 Metabolic encephalopathy; J12.82 Pneumonia due to coronavirus disease 2019; U07.1 COVID-19; K55.039 Acute (reversible) ischemia of large intestine, extent unspecified; K56.2 Volvulus; J95.821 Acute postprocedural respiratory failure; I50.33 Acute on chronic diastolic (congestive) heart failure; E87.1 Hypo-osmolality and hyponatremia; I13.0 Hypertensive heart and chronic kidney disease with heart failure and stage 1 through stage 4 chronic kidney disease, or unspecified chronic kidney disease; R18.8 Other ascites; N13.6 Pyonephrosis; K56.7 Ileus, unspecified; I47.20 Ventricular tachycardia, unspecified; D62 Acute posthemorrhagic anemia; N39.0 Urinary tract infection, site not specified; F05 Delirium due to known physiological condition; K92.1 Melena; R65.20 Severe sepsis without septic shock; K63.89 Other specified diseases of intestine; K62.89 Other specified diseases of anus and rectum; E78.5 Hyperlipidemia, unspecified; H40.9 Unspecified glaucoma; K21.9 Gastro-esophageal reflux disease without esophagitis; F03.90 Unspecified dementia, unspecified severity, without behavioral disturbance, psychotic disturbance, mood disturbance, and anxiety; I45.81 Long QT syndrome; E87.6 Hypokalemia; E83.39 Other disorders of phosphorus metabolism; R13.10 Dysphagia, unspecified; N18.30 Chronic kidney disease, stage 3 unspecified; G62.9 Polyneuropathy, unspecified; L89.151 Pressure ulcer of sacral region, stage 1; I48.0 Paroxysmal atrial fibrillation; I49.5 Sick sinus syndrome; I08.0 Rheumatic disorders of both mitral and aortic valves; M19.90 Unspecified osteoarthritis, unspecified site; I95.9 Hypotension, unspecified; R53.1 Weakness; Z91.048 Other nonmedicinal substance allergy status; Z91.041 Radiographic dye allergy status; Z95.0 Presence of cardiac pacemaker; Z88.8 Allergy status to other drugs, medicaments and biological substances; Z88.2 Allergy status to sulfonamides; Z79.899 Other long term (current) drug therapy; Z85.46 Personal history of malignant neoplasm of prostate; Z79.01 Long term (current) use of anticoagulants; Z94.7 Corneal transplant status; Z90.79 Acquired absence of other genital organ(s)
CPT/HCPCS: 36415; 36416; 36430; 71045; 74018; 74019; 74022; 74177; 74420; 80048; 80053; 80202; 81001; 82274; 82533; 82805; 83605; 83690; 83735; 83880; 83935; 84100; 84300; 84484; 85025; 85610; 85730; 86140; 86850; 86900; 86901; 87040; 87077; 87086; 87149; 87186; 88307; 89220; 93005; 93010; 93970; 94002; 94003; 96361; 96365; 96367; 96368; A4649; C1751; C1776; C2617; C9113; J0295; J0360; J0692; J1650; J1720; J1815; J1885; J1940; J1956; J2250; J2370; J2543; J2704; J2916; J3010; J3370; J3475; J3480; J3490; J7030; J7050; J7070; J7512; P9016; P9045; Q9967

== ENCOUNTER 2022-08-05 13:15 | Inpatient (IN) | payer MEDICARE, BC ==
[2022-08-05 14:06] LABS: #Eosinphils 0.1 thou/uL (0.0-0.7); #Lymphocytes 0.7 thou/uL (1.20-3.40); #Monocytes 0.1 thou/uL (0.11-0.59); #Neutrophils 7.3 thou/uL (1.40-6.50); %Basophils 0.2 % (0.0-1.0); %Eosinophils 0.9 % (0.0-10.0); %Lymphocytes 8.6 % (21.0-51.0); %Monocytes 1.3 % (0.0-10.0); Hemoglobin 9.1 g/dL (14.0-18.0); Mean Corpuscular HGB CONC 32.3 g/dL (32.0-36.0); Mean Corpuscular Hemoglobin 33.2 pg (27.0-31.0); Mean Platelet Volume 7.4 fL (7.4-10.4); Platelet Count 100 10x3/uL (130-400); RBC Distribution Width 17.8 % (11.5-14.5); Red Blood Cell (RBC) Count 2.75 mill/uL (4.70-6.10); White Blood Cell (WBC) Count 8.3 10x3/uL (4.8-10.8)
[2022-08-05 14:21] LABS: Bilirubin Negative (Negative); Blood, Urine 3+ (Negative); Clarity Extra Turbid (Clear); Glucose, Urine (Dipstick) Normal (Negative); Ketone, Urine Negative (Negative); Leukocyte 500 Leu/uL (Negative); Nitrite Negative (Negative); Protein, Urine (Dipstick) 200 mg/dL (Neg-Trace); Squamous Epithelial 0-3 HPF (0-3); Urobilinogen Normal mg/dL (Less than 2)
[2022-08-05 14:27] LABS: ALT (SGPT) 25 U/L (8-55); AST (SGOT) 28 U/L (5-34); Albumin 2.6 g/dL (3.4-4.8); Alkaline Phosphatase 153 U/L (40-110); Anion Gap 11 mmol/L (10-20); BUN (Urea Nitrogen) 19 mg/dL (8.4-25.7); Bilirubin, Total 0.3 mg/dL (0.2-1.2); CK (CPK) 46 U/L (30-200); Calc. Creatinine Clearance 0 mL/min (70-130); Calcium 8.3 mg/dL (7.8-10.44); Carbon Dioxide 23 mmol/L (23-31); Chloride 99 mmol/L (98-107); Estimated GFR 67; Glucose 161 mg/dL (83-110); Potassium 3.9 mmol/L (3.5-5.1); Protein, Total 5.6 g/dL (5.8-8.1); Sodium 129 mmol/L (136-145)
[2022-08-05 14:28] LABS: Bacteria/HPF 3+ HPF (None Seen); RBC/HPF 21-50 HPF (0-3)
[2022-08-05] MEDS ORDERED: Cefepime 2 GM VIAL ONE (14:57)
[2022-08-05 15:11] LABS: INR-International Normal Ratio 1.1; Prothrombin Time 15.1 sec (12.0-14.7)
[2022-08-05 15:12] LABS: PTT 41.5 sec (22.9-36.1)
[2022-08-05] MEDS ORDERED: Vancomycin 1.5 GRAM/300 ML BAG 1.5 GM in Premix Bag 1 BAG IVPB SCH (15:15)
[2022-08-05] MEDS ORDERED: Fentanyl 100 MCG/2 ML VIAL ONE (16:41)
[2022-08-05] MEDS ORDERED: Glycopyrrolate 0.2 MG/ML 5 ML SYRINGE SLOW IVP SCH (17:00)
[2022-08-05 19:26] LABS: SARS-CoV-2 NAA Rapid Test Not Detected (NotDetected)
[2022-08-05] MEDS ORDERED: Lorazepam 2 MG/ML VIAL SLOW IVP PRN (20:14)
[2022-08-05 20:15] VITALS: BP 68/39
[2022-08-05] MEDS ORDERED: Lorazepam 2 MG/ML VIAL SLOW IVP SCH (21:00)
[2022-08-05] MEDS ORDERED: Atropine Sulfate 1% Ophth Soln 5 ml Bottle PO SCH (22:00)
== END 2022-08-05 20:52 | disposition hospice, inpatient (51) | DRG 871 ==
LOC: ERS 13:15 → T4-A 17:06
PROVIDERS: ADMIT Family Medicine; ATTEND Family Medicine
DX: A41.9 Sepsis, unspecified organism (principal); R65.21 Severe sepsis with septic shock; I13.0 Hypertensive heart and chronic kidney disease with heart failure and stage 1 through stage 4 chronic kidney disease, or unspecified chronic kidney disease; Z51.5 Encounter for palliative care; Z66 Do not resuscitate; I48.91 Unspecified atrial fibrillation; E78.5 Hyperlipidemia, unspecified; H40.9 Unspecified glaucoma; K59.00 Constipation, unspecified; F03.90 Unspecified dementia, unspecified severity, without behavioral disturbance, psychotic disturbance, mood disturbance, and anxiety; I50.9 Heart failure, unspecified; N18.9 Chronic kidney disease, unspecified; Z95.810 Presence of automatic (implantable) cardiac defibrillator; Z88.2 Allergy status to sulfonamides; Z88.8 Allergy status to other drugs, medicaments and biological substances; Z91.041 Radiographic dye allergy status; Z91.048 Other nonmedicinal substance allergy status; Z93.2 Ileostomy status
CPT/HCPCS: 36415; 70450; 71045; 74176; 80053; 81003; 81015; 82550; 83605; 83880; 84484; 85025; 85610; 85730; 87040; 87077; 87086; 93005; 94760; J0692; J3010; J3370

== ENCOUNTER 2022-08-05 20:53 | Inpatient (IN) | payer OTHER ==
[2022-08-05] MEDS ORDERED: Lorazepam 2 MG/ML VIAL SLOW IVP PRN (22:26)
[2022-08-05 23:04] VITALS: BP 67/38
[2022-08-06] MEDS ORDERED: Atropine Sulfate 1% Ophth Soln 5 ml Bottle PO SCH
[2022-08-06] MEDS ORDERED: Lorazepam 2 MG/ML VIAL SLOW IVP SCH (01:00)
== END 2022-08-05 21:23 | disposition expired | DRG 951 ==
LOC: T4-A 20:53
PROVIDERS: ADMIT Family Medicine; ATTEND Family Medicine
DX: Z51.5 Encounter for palliative care (principal); Z66 Do not resuscitate; I50.9 Heart failure, unspecified